=== PATIENT | female | born 1955 | race Caucasian/White ===

== ENCOUNTER → 2016-12-02 | Outpatient (CLI) | payer OTHER ==
[~2016-12-02] MED LIST: ACETAMINOPHEN325 M1 PO; ADVAIR HFA 115-12 GM INH; ADVAIR HFA115 MCG/21 INH; ALBUTEROL INH IH; AMITRIPTYLINE H50 M2 PO; AMITRIPTYLINE H50 M3 PO; ATIVAN1 MG PO; AZITHROMYCIN 2250 MG PO; B12 5,000 MCG1 EACH IM; B12INJ IM; B12INJ SC; BENADRYL25 MG PO; BOOST PO; BYSTOLIC2.5 MG PO; CEFDINIR300 MG PO; CEPACOL SORE T1 EAC7 PO; CIPROFLOXACIN500 M1 PO; CIPROFLOXACIN500 M3 GT; CITRUCEL CAPLET1 TA1 PO; CLARITIN10 MG PO; COLACE 100 MG100 MG PO; COLACE100 MG PO; COMBIVENT IH; COMBIVENT INH; COMBIVENT RESPIM4 GM IH; COMBIVENT RESPIM4 GM INH; COMPAZINE10 MG; COMPAZINE5 MG PO; CYANOCOBAL1000 MCG/1 IM; CYANOCOBALAM1000 MCG IM; CYMBALTA30 MG PO; DEMADEX20 MG PO; DEXAMETHASONE 22 M1 PO; DIAZEPAM 10 MG10 M2 PO; DILAUDID 2 MG TA2 MG; DILAUDID 2 MG TA2 MG PO; DILAUDID 4 MG TA4 M1 PO; DILAUDID PUMP; DILAUDID1 MG/1 ML IV; DILAUDID2 M1 PO; DILAUDID8 MG PO; DOCUSATE SODIU100 MG PO; DOLOPHINE HCL10 MG PO; DUONEB 2.5-0.5 M3 ML INH; DURAGESIC1 EAC1 TD; ENTOCORT EC 3 MG3 M1 PO; ERY-TAB250 MG PO; ERYTHROMYCIN250 MG; FENTANYL PA50 MCG/HR TD; FENTANYL PA50 MCG/HR TP; FLAGYL 250 MG250 MG; FLAGYL500 MG PO; FLEXERIL PO; FLONASE 0.05%50 MCG NASAL; FLORANEX PACKET1 GM PO; FLORANEX TABLE1 EAC1 PO; FLUCONAZOLE 10100 MG PO; HUMIRA40 MG/0.8 SUBQ; HYDROMORPH; HYDROMORPHONE HC8 MG PO; HYOSCYAMINE PO; HYOSCYAMINE0.375 M2 PO; IRON PO; IRON325 PO; K-DUR 20 MEQ T20 MEQ PO; KLOR-CON 1010 MEQ PO; LEVAQUIN 250 M250 MG; LORAZEPAM 0.50.5 MG PO; LORAZEPAM 1 MG T1 M1; LORAZEPAM 1 MG T1 M1 PO; LOZENGES; MAG DELAY64 MG PO; MAGNESIUM OXID400 MG PO; MAGNESIUM PO; MAGNESIUM250 M1 PO; MAGNESIUM400 MG PO; MECLIZINE 25 MG25 M1 PO; METHADONE HCL 110 M1 PO; METHADOSE10 M1 PO; METOCLOPRAMIDE 55 M1 PO; METOCLOPRAMIDE10 MG PO; MIRALAX17 GM PO; MOBIC7.5 MG PO; MUCINEX TA600 MG/TA2 PO; NASONEX17 GM NASAL; NEURONTIN 300300 M1 PO; NICOTINE PATCH1 EAC1 TD; NICOTINE TRANSD14 M1 TD; NICOTINE TRANSD21 M1; NICOTINE TRANSD21 M1 TRANSDERM; NORCO 5-325 TA1 EACH PO; ONDANSETRON HCL4 M2 IV; OPANA ER20 M1 PO; OXYCODONE HCL5 M1 PO; OXYCONTIN20 M1 PO; OXYIR5 MG PO; PANTOPRAZOLE SO40 M1 PO; PEPCID20 MG IV; PHENERGAN 25 MG25 M1 PO; PHENERGAN 25 MG25 MG PO; PHENERGAN IV; PHENERGAN-CODE120 ML PO; PHENERGAN25 M2 PO; PHENERGAN25 MG RE; PHENERGAN25 MG/1 M1 IV; POTASSIUM GLUCO99 M2 PO; POTASSIUM PO; POTASSIUM20; POTASSIUM20 PO; PREDNISONE 10 M10 MG; PREDNISONE 10 M10 MG PO; PREDNISONE 20 M20 MG PO; PREDNISONE 5 MG5 M1 PO; PREDNISONE 5 MG5 MG; PROTONIX40 M2 PO; REGLAN 10 MG TA10 MG PO; REMERON15 MG PO; SANCTURA20 MG PO; SODIUM CHLORID500 M1 IV; STOOL SOFTENER1 EAC2 PO; SYMBICORT160 MCG/4.; TESSALON PERLE100 MG PO; TRANSDERM-SCO1 PATC1 TD; TRAZODONE HCL50 MG PO; TUSSIN DM CLEA PO; VALACYCLOVIR1000 MG PO; VALIUM5 MG PO; VANCOMYCIN HCL 11 G2 IVPB; VANCOMYCIN HCL1 GM IVPB; VISTARIL 25 MG25 M1 PO; VITAMIN B-12 IM; VITAMIN B-12500 MCG PO; VITAMIN D1000 UNI1 PO; XANAX XR1 MG PO; ZOFRAN ODT4 MG PO; ZOFRAN2 MG/1 ML IV; ZOSYN 3.3753.375 GM IV
[2016-12-02 16:54] LABS: HEMATOCRIT 41.5 % (37.0-47.0); HEMOGLOBIN 13.7 gm/dL (12.0-15.0); MCH 29.4 pg (26.0-34.0); MCV 89.3 fL (80.0-100.0); RBC 4.65 mil/uL (4.20-5.00); RDW 20.9 % (10.5-14.5); WBC 10.2 thou/uL (4.0-11.0)
[2016-12-02 17:39] LABS: ALBUMIN 3.4 g/dL (3.4-5.0); ALKALINE PHOSPHATASE 147 U/L (46-116); ANION GAP 9 mmol/L (7-16); BUN 20 mg/dL (7-18); CALCIUM 9.2 mg/dL (8.5-10.1); CHLORIDE 100 mmol/L (98-107); CHOLESTEROL 269 mg/dL (<200); CO2 29 mmol/L (21-32); CREATININE 0.8 mg/dL (0.6-1.3); GLUCOSE 97 mg/dL (70-99); HDL CHOLESTEROL 108 mg/dL (>40); LDL CHOLESTEROL 129 mg/dL (<100); POTASSIUM 4.4 mmol/L (3.5-5.1); SGOT 15 U/L (15-37); SGPT 22 U/L (30-65); SODIUM 138 mmol/L (136-145); TC:HDL 2.5 Ratio (Not establshd); TOTAL BILIRUBIN 0.5 mg/dL (<0.1-1.0); TRIGLYCERIDE 164 mg/dL (<150); VLDL 33 mg/dL (<40)
[2016-12-03 04:15] LABS: FOLIC ACID 11.5 ng/mL (>3.0)
[2016-12-03 08:14] LABS: FREE T4 1.57 ng/dL (0.82-1.77); TSH 1.25 uIU/mL (0.450-4.500)
== END ==
LOC: OPONC 02:02
PROVIDERS: Internal Medicine
DX: K50.90 Crohn's disease, unspecified, without complications (principal); R60.9 Edema, unspecified; E46 Unspecified protein-calorie malnutrition

== ENCOUNTER → 2017-07-17 | Outpatient (CLI) | payer OTHER | LOC: OPONC 09:11 | DX: J01.90 Acute sinusitis, unspecified (principal); R50.9 Fever, unspecified; J44.9 Chronic obstructive pulmonary disease, unspecified; K50.90 Crohn's disease, unspecified, without complications; R35.0 Frequency of micturition ==

== ENCOUNTER 2017-08-20 09:42 | Inpatient (IN) | payer OTHER ==
[~2017-08-20] VITALS: Ht 157.5 cm; Wt 61.2 kg
--- NOTE | ~2017-08-20 | H ---
[facility] [place] [address] HISTORY AND PHYSICAL Name: HERMILO GEORGE Room #: 441-P ADM IN M.R.#: [id number] Admission: 08/20/17 Attend Phys: Rufus Faye MD Discharge: Date of : 55 Report #: [id number] THIS REPORT FOR: //name// CC: Deon Faye DATE OF SERVICE: 08/20/2017 CHIEF COMPLAINT: Abdominal pain. HISTORY OF PRESENT ILLNESS: This is one of many Donora admissions for this 62-year-old female with unbearable left lower quadrant abdominal pain that became worse 10 days ago. She has had intermittent cramping abdominal pain, nausea and some vomiting and some diarrhea. She has had constipation. She has had lightheadedness and rapid heartbeat. She has a long history of Crohn's disease with multiple surgeries. PAST MEDICAL HISTORY: Long history of Crohn's disease, also with a 6-8 year hiatus in the late part of 1589-7808 decade. She has had . She reported to the Emergency Room physician that she had had 5 intestinal resections, 2 surgeries for lysis of adhesions, and 3 fistulas. She takes Humira. She has had all of her teeth removed in order to safely allow her to take Humira. She is a smoker and has COPD. She has atherosclerotic vascular disease. She has elevated lipids. On 10/15/2016, she had a CT enterogram that again revealed a small bowel stricture with a new finding of proximal dilatation, suggesting more functional obstruction. She was given a course of corticosteroids with the hope it would enlarge and would reduce inflammation and enlarge the lumen and relieve the possible mild obstruction. She has a history of chronic B12 deficiency and difficulty in actually giving herself B12 injection on a monthly basis. More recently, she insisted that she was taking her B12 injections monthly with the B12 level returning low and methylmalonic acid level returning high. It was recommended that she give herself B12 injection every 2 weeks. She has had severe malnutrition and malabsorption. She has had episodes of difficulty with multifactorial edema. At the same time, she has been undergoing corticosteroid therapy, and at times higher doses of torsemide have been recommended for short periods of time. She has a short remnant of the colon left after several surgeries with a "kink" around the area of the anastomosis, which can catch stool and given her this sensation of being constipated. 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 This resolved over [facility] [address] [place] [address] HISTORY AND PHYSICAL Name: HERMILO GEORGE Room #: 441-P [facility] IN [facility]#: [id number] Admission: 08/20/17 Attend Phys: Rufus Faye MD Discharge: Date of : 55 Report #: [id number] several years, because of the vagueness of the symptoms, the diagnosis was delayed. She has had pancreatitis in the past. There is unclear history of meningitis from an infection of her intrathecal pain pump device. She has had chronic pain, chronic depression, kidney stones, and a cholecystectomy. She has COPD and she smokes. She has active atherosclerotic vascular disease in her mesenteric distribution. She has had back surgery for spinal stenosis with a titanium skyla placed at L4-L5. She has had postoperative infections in some of those areas along with an osteoporotic vertebral crack which was also repaired. She has a Port-A-Cath in place. She has had gastroparesis from her multiple medical problems as well as her high dose pain medications. She has osteoporosis and history of atrial fibrillation in the past. She has an intrathecal pain pump that is managed by Dr. Quigley at the [facility]. It has been infected and replaced at least one time. REVIEW OF SYSTEMS: In addition to the HPI, she recently had return of severe edema going from the tips of her toes to her upper thighs. Torsemide 20 mg 2 tablets once or twice daily have helped tremendously with removing a lot of her edema fluid. Recently in the office, she has had more problems with edema and has been taking the higher dose of the loop diuretic. SOCIAL HISTORY: She does not drink alcohol. She continues to smoke, although the number of cigarettes per day has dropped tremendously. CURRENT MEDICATIONS: List recorded in the electronic medical record: Torsemide 20 mg either one or two pills daily depending on how much edema she has. She is to take a potassium pill along with it. Vitamin B12 1000 mcg/mL, she is to take 1 every 2 weeks. Diazepam 10 mg twice day is a muscle relaxer. Hydromorphone 2 mg tablets for 8 mg 4 times a day as needed for pain. Potassium chloride 10 mEq with each of the torsemide 20 mg tablets once daily. Promethazine 25 mg every 6 hours as needed for nausea. Tizanidine 4 mg tablets one half to one tablet every 8 hours as needed for muscle relaxer. Torsemide 20 mg 1 tablet once daily is her current dose for leg swelling. ALLERGIES: Lactose intolerance, sulfonamide antibiotics, , mesalamine from Pentasa and zolpidem. ASSESSMENT: 1. Abdominal pain. 2. Ongoing ulcerative colitis. 3. Possible constipation. [facility] [address] [place] [address] HISTORY AND PHYSICAL Name: HERMILO GEORGE Room #: 441-P [facility]#: [id number] Admission: 08/20/17 Attend Phys: Rufus Faye MD Discharge: Date of : 55 Report #: [id number] 4. Chronic obstructive pulmonary disease. 5. Hypertension. PLAN: The patient is admitted and given intravenous fluids for her dehydration. She is also getting IV fluids for her volume depletion. She is to undergo a colonoscopy tomorrow to evaluate the current state of disease in her colon. She is to continue pain medications either orally or IV while in the hospital. She retains her intrathecal pain pump, which remains active and is giving her medication to control her pain. She requests a full code blue. By: 0012 0116 Rufus Faye MD /nt
--- NOTE | ~2017-08-20 | EKG ---
[place] [address] [facility] [address] ELECTROCARDIOGRAM REPORT Name: HERMILO GEORGE Room #: [facility]#: [id number] Admission: 08/20/17 Attend Phys: Discharge: Date of : 55 Report #: [id number] THIS REPORT FOR: //name// [facility] ED Test Date: 2017-08-20 Test Time: 10:06:57 Pat Name: HERMILO GEORGE Department: Room: Gender: F Senior Bi Developer: [id number] : 1955 Requested By: Hernan [place] Order Number: [id number] MD: Eduardo Eddy Measurements Intervals [place] Rate: 111 P: 67 MD: 175 QRS: 2 QRSD: 96 T: 25 QT: 332 QTc: 451 Interpretive Statements Sinus tachycardia Compared to ECG 07/09/2015 05:57:46 Sinus rhythm no longer present Electronically Signed On 08-20-2017 11:54:58 CDT by Eduardo Eddy [email or web address] <ELECTRONICALLY SIGNED> By: Eduardo Eddy MD 08/20/17 1154 1006 1006 MD IVONE Harris
--- NOTE | ~2017-08-20 | P ---
[facility] [place] [address] PROCEDURE REPORT Name: HERMILO GEORGE Room #: 441-P [facility]#: [id number] Admission: 08/20/17 Attend Phys: Rufus Faye MD Discharge: 08/24/17 Date of : 55 Report #: [id number] THIS REPORT FOR: //name// CC: Deon Faye BRIEF HISTORY: The patient is a 62-year-old woman with a history of Crohn disease and previous surgery for Crohn disease, on chronic maintenance therapy with Humira who has developed increasing diarrhea and pain consistent with her typical relapses in the past. PREOPERATIVE DIAGNOSIS: Crohn disease with previous surgery. POSTOPERATIVE DIAGNOSES: 1. Stenotic ileocolonic anastomosis with ulceration. 2. Mild erosive changes, proximal colon. 3. Surgical changes consistent with previous ileocolectomy. MEDICATIONS: Deep sedation with propofol per anesthesia. SPECIMEN: 1. Biopsies of stenotic anastomosis. 2. Biopsies of proximal colon. ESTIMATED BLOOD LOSS: 3 mL. PROCEDURE: Colonoscopy to ileocolonic anastomosis with biopsy. FINDINGS: Prior to propofol sedation, procedure of colonoscopy was reviewed with the patient as well as potential risks and its complications. She indicates she understands and desires to proceed. DESCRIPTION OF PROCEDURE: With the patient in left lateral decubitus position, digital examination was completed which revealed no abnormalities. Subsequently, the [employer] video colonoscope was introduced into the rectum and advanced under direct vision into the proximal colon. In the proximal colon, ileocolonic anastomosis was identified. It was noted to be erythematous and superficially eroded. It was noted to be markedly stenotic and the scope would not pass. Multiple biopsies were obtained. At that point, the scope was withdrawn and careful circumferential views were obtained. Unfortunately, the prep was limited with moderate amount of liquid stool around the colon. Much of the mucosa was able to be visualized, but some of this material was so thick, it would not aspirate through the scope. There were streaks of blood in the proximal colon on some mucusy material but was washed away. The underlying mucosa essentially looked normal. A couple of small erosions were seen. Multiple biopsies were obtained in the proximal colonic mucosa. As we withdrew the scope, again, the prep was limited but the mucosa was seen and appeared to [address] [address] PROCEDURE REPORT Name: HERMILO GEORGE Room #: 441-P [facility] IN [facility]#: [id number] Admission: 08/20/17 Attend Phys: Rufus Faye MD Discharge: 08/24/17 Date of : 55 Report #: [id number] be normal. I did not see pseudomembranes to suggest C. difficile colitis. Scope was withdrawn in the rectum. Upon retroflexion, no abnormalities were seen. Scope was withdrawn. The patient tolerated the procedure well. DISPOSITION: The patient with history of Crohn disease. She has a tightly stenotic ileocolonic anastomosis. The CT shows thickening of the ileum, which I presumed represents active inflammatory disease. I could not get the scope into the ileum to visualize the mucosa. Biopsies were obtained. She is currently on Humira and will continue at this point in time. She was also started on IV steroids, which may be beneficial at least in a short term. Also, I have discussed with regard to long-term plans in regards to Humira, antibody levels and CHOP levels some may be helpful before next injection. She is asking about use of other agents such as Stelara or Entyvio. We will follow up on biopsies and discuss further. <ELECTRONICALLY SIGNED> By: Larry Soria MD 08/27/17 1200 1327 0455 Larry Soria MD /nt
--- NOTE | ~2017-08-20 | S ---
[facility] [place] [address] SURGICAL PATH RPT PROCEDURE Name: ZANE GEORGENA Jesus Room #: 441-P DIS IN M.R.#: [id number] Admission: 08/20/17 Date of : 55 Discharge: 08/24/17 Report #: [id number] Path Case #: [id number] PATHOLOGY REPORT COLLECTION DATE: 08/21/2017 RECEIVED DATE: 08/21/2017 SUBMITTING PHYS: Dr. Larry Soria OTHER PHYS: SPECIMEN(S) RECEIVED: A.Biopsy of ileocolonic anastomosis B.Colon * * * * * * * * * * * * FINAL DIAGNOSIS: A. "Biopsy of ileocolonic anastomosis," biopsy: - Colonic mucosa with moderate to marked chronic active colitis, severe activity, with ulceration and granulation tissue; no dysplasia seen. (see comment) B. "Colon," biopsy: - Colonic mucosa with mild chronic active colitis, mild activity; no dysplasia seen. (see comment) COMMENT: Both specimens A and B are histologically compatible with chronic idiopathic inflammatory bowel disease. No dysplasia is seen. Clinical and endoscopic correlation is recommended. (CLW:; 08/24/2017) PATHOLOGIST: Bonny Jonas M.D. REPORT ELECTRONICALLY SIGNED BY: Bonny Jonas M.D. DATE/TIME: 08/24/2017 22:11 * * * * * * * * * * * * GROSS PATHOLOGY: A. Received in formalin labeled "Hermilo George BX of ileocolonic anastomosis," are 5 segments of miller soft tissue measuring 1.3 x 1.0 x 0.4 cm in aggregate dimensions and ranging from 0.3 to 0.4 cm in maximum dimension. The specimen is submitted entirely in cassette A1. B. Received in formalin labeled "Hermilo George, BX of colon," are 3 segments of miller soft tissue measuring 1.3 x 0.3 x 0.3 cm in aggregate dimensions and ranging from 0.3 to 0.4 cm in maximum dimension. The specimen is submitted entirely in cassette B1. (TSD; 08/21/2017) [facility] [address] [place] [address] SURGICAL PATH RPT PROCEDURE Name: HERMILO GEORGE Room #: 441-P [facility] IN M.R.#: [id number] Admission: 08/20/17 Date of : 55 Discharge: 08/24/17 Report #: [id number] Path Case #: [id number] CLINICAL HISTORY: Hx Crohn's INITIAL CPT CODE(S): A; 30334 B; 95576 Professional services performed by [facility] at [facility] [address] [place] [address] Technical services performed by [facility] at [address] [place] [address], [facility] [address] [address]. [facility] [address] [address] PHONE: [phone] DIRECTOR: Guillermo Cortes M.D. * * * END OF REPORT * * *
[2017-08-20 09:52] VITALS: BP 139/94
[2017-08-20 10:10] LABS: URINE BLOOD NEGATIVE (Negative); URINE COLOR YELLOW; URINE GLUCOSE-RANDOM* NEGATIVE (Negative); URINE KETONES TRACE (Negative); URINE LEUKOCYTES-REFLEX NEGATIVE (Negative); URINE PROTEIN (DIPSTICK) 1+ (Negative); URINE SPECIFIC GRAVITY >= 1.030 (1.003-1.035)
[2017-08-20 10:13] LABS: ICTOTEST (BILI CONFIRMATORY) Negative (Negative); URINE BILIRUBIN NEGATIVE (Negative)
[2017-08-20 10:21] LABS: HYALINE CASTS 0-3 Few /LPF (None Seen); SQUAMOUS >10 Many /LPF (0-3)
[2017-08-20 10:22] LABS: URINE RBC 0-2 Rare /HPF (0-2); URINE WBC-REFLEX 0-5 Rare /HPF (0-5)
[2017-08-20] MEDS ORDERED: TIZANIDINE HCL4 MG PO (10:26)
[2017-08-20 10:27] LABS: CRYSTALS None Seen /LPF (None Seen)
[2017-08-20] MEDS ORDERED: PHENERGAN 25 MG25 M1 PO (10:27)
[2017-08-20] MEDS ORDERED: KLOR-CON 1010 MEQ PO (10:29)
[2017-08-20 10:30] LABS: ABSOLUTE NEUTROPHILS 6.7 thou/uL (1.4-8.2); BASOPHILS 1.3 % (0.0-2.0); EOSINOPHILS 0.6 % (0.0-3.0); HEMATOCRIT 39.5 % (37.0-47.0); HEMOGLOBIN 13.4 gm/dL (12.0-15.0); MCH 32.4 pg (26.0-34.0); MCV 95.3 fL (80.0-100.0); MONOCYTES 8.3 % (1.0-8.0); PLATELET COUNT 222 thou/uL (150-400); POLYS 65.8 % (36.0-66.0); RBC 4.14 mil/uL (4.20-5.00); RDW 14.8 % (10.5-14.5); WBC 10.3 thou/uL (4.0-11.0)
[2017-08-20] MEDS ORDERED: B-12 COMPL1000 MCG/1 IM (10:33)
[2017-08-20 10:37] LABS: MANUAL DIFF NO
[2017-08-20 10:38] LABS: ANION GAP 7 mmol/L (7-16); BUN 14 mg/dL (7-18); CALCIUM 8.7 mg/dL (8.5-10.1); CHLORIDE 104 mmol/L (98-107); CO2 28 mmol/L (21-32); GLUCOSE 156 mg/dL (74-106); SODIUM 139 mmol/L (136-145)
[2017-08-20 10:39] LABS: POTASSIUM 2.6 mmol/L (3.5-5.1)
[2017-08-20 10:47] LABS: ALBUMIN 3.1 g/dL (3.4-5.0); ALKALINE PHOSPHATASE 178 U/L (46-116); SGOT 31 U/L (15-37); SGPT 29 U/L (30-65); TOTAL BILIRUBIN 0.3 mg/dL (<0.1-1.0); TOTAL PROTEIN 6.9 g/dL (6.4-8.2); TROPONIN-I < 0.04 ng/mL (<0.04-0.07)
[2017-08-20 12:13] VITALS: BP 102/55
[2017-08-20 12:26] VITALS: BP 102/55
[2017-08-20 13:38] VITALS: BP 124/64
[2017-08-20 16:20] VITALS: BP 107/58
[2017-08-20 18:18] LABS: CALCIUM 8.8 mg/dL (8.5-10.1); CREATININE 0.8 mg/dL (0.6-1.0)
[2017-08-20 18:19] LABS: POTASSIUM 4.4 mmol/L (3.5-5.1)
[2017-08-20 19:19] VITALS: BP 104/52
[2017-08-21 04:11] VITALS: BP 121/51
[2017-08-21 05:11] LABS: ALBUMIN 2.6 g/dL (3.4-5.0); CREATININE 0.7 mg/dL (0.6-1.0); MAGNESIUM 2.2 mg/dL (1.8-2.4); POTASSIUM 4.6 mmol/L (3.5-5.1); TOTAL BILIRUBIN 0.3 mg/dL (<0.1-1.0); TOTAL PROTEIN 6.7 g/dL (6.4-8.2)
[2017-08-21 07:18] VITALS: BP 114/61
[2017-08-21 16:33] VITALS: BP 104/47
[2017-08-21 20:09] VITALS: BP 98/50
[2017-08-22 05:05] VITALS: BP 128/64
[2017-08-22 05:45] LABS: CALCIUM 8.8 mg/dL (8.5-10.1); POTASSIUM 5.3 mmol/L (3.5-5.1)
[2017-08-22 08:42] VITALS: BP 129/70
[2017-08-22 15:33] VITALS: BP 141/69
[2017-08-22 19:48] VITALS: BP 131/62
[2017-08-23 03:45] VITALS: BP 123/65
[2017-08-23 05:53] LABS: HEMATOCRIT 34.4 % (37.0-47.0); MCH 31.5 pg (26.0-34.0); MCHC 32.4 g/dL (28.0-37.0); MCV 97.2 fL (80.0-100.0); RBC 3.54 mil/uL (4.20-5.00); RDW 14.8 % (10.5-14.5); WBC 11.4 thou/uL (4.0-11.0)
[2017-08-23 06:01] LABS: HEMOGLOBIN 11.2 gm/dL (12.0-15.0)
[2017-08-23 06:02] LABS: CALCIUM 8.9 mg/dL (8.5-10.1); CREATININE 0.8 mg/dL (0.6-1.0); MAGNESIUM 1.9 mg/dL (1.8-2.4); POTASSIUM 4.4 mmol/L (3.5-5.1)
[2017-08-23 07:10] VITALS: BP 136/60
[2017-08-23 15:54] VITALS: BP 144/64
[2017-08-23 20:00] VITALS: BP 139/59
[2017-08-24 04:45] VITALS: BP 144/65
[2017-08-24 07:54] VITALS: BP 144/63
[2017-08-24 11:14] VITALS: BP 144/63
[2017-08-24] MEDS ORDERED: LORAZEPAM 0.50.5 MG PO (13:06)
[2017-08-24] MEDS ORDERED: PREDNISONE 10 M10 MG PO (13:06)
== END 2017-08-24 14:35 | disposition home health service (06) | DRG 385 ==
LOC: ER 09:42 → EROBS 12:02 → 4S 12:02 → ENTRNSPT 08-24 14:24 → EDTRNSPTSTS 08-24 14:32 → 4S 08-24 14:35
PROVIDERS: Internal Medicine; Physician Assistant
PROC: 0DBE8ZX Excision of Large Intestine, Via Natural or Artificial Opening Endoscopic, Diagnostic (ICD-10-PCS; principal; 2017-08-21)
PROC: 0DBB8ZX Excision of Ileum, Via Natural or Artificial Opening Endoscopic, Diagnostic (ICD-10-PCS; principal; 2017-08-21)
DX: K50.90 Crohn's disease, unspecified, without complications (principal); E43 Unspecified severe protein-calorie malnutrition; E87.6 Hypokalemia; E86.0 Dehydration; G89.29 Other chronic pain; F32.9 Major depressive disorder, single episode, unspecified; M81.0 Age-related osteoporosis without current pathological fracture; I48.91 Unspecified atrial fibrillation; N20.0 Calculus of kidney; F17.210 Nicotine dependence, cigarettes, uncomplicated; J44.9 Chronic obstructive pulmonary disease, unspecified; I10 Essential (primary) hypertension; E86.1 Hypovolemia; E83.42 Hypomagnesemia; Z90.710 Acquired absence of both cervix and uterus; Z90.49 Acquired absence of other specified parts of digestive tract; Z88.8 Allergy status to other drugs, medicaments and biological substances; Z88.2 Allergy status to sulfonamides; Z87.01 Personal history of pneumonia (recurrent)
CPT/HCPCS: 10100; 62110; 62900; 70005

== ENCOUNTER → 2017-09-08 | Outpatient (CLI) | payer OTHER ==
[~2017-09-08] MED LIST changes: +B-12 COMPL1000 MCG/1 IM; +TIZANIDINE HCL4 MG PO
[2017-09-08 12:30] VITALS: BP 126/73
== END ==
LOC: OPONC 06:25
DX: K50.90 Crohn's disease, unspecified, without complications (principal)

== ENCOUNTER → 2017-09-16 | Outpatient (CLI) | payer OTHER ==
[2017-09-16 11:57] LABS: HEMATOCRIT 40.6 % (37.0-47.0); HEMOGLOBIN 13.5 gm/dL (12.0-15.0); MCHC 33.1 g/dL (28.0-37.0); MCV 93.6 fL (80.0-100.0); RBC 4.34 mil/uL (4.20-5.00); RDW 14.7 % (10.5-14.5); WBC 16.7 thou/uL (4.0-11.0)
[2017-09-16 14:44] LABS: CALCIUM 9.6 mg/dL (8.5-10.1); CREATININE 1.2 mg/dL (0.6-1.0); POTASSIUM 4.5 mmol/L (3.5-5.1)
== END ==
LOC: OPONC 11:04
PROVIDERS: Specialist
DX: K50.90 Crohn's disease, unspecified, without complications (principal)

== ENCOUNTER → 2017-12-14 | Outpatient (CLI) | payer OTHER ==
[~2017-12-14] MED LIST changes: +ATIVAN0.5 MG PO; +DEPO MEDRO IM; +DILAUDID PUMP IV; +ENTOCORT EC3 MG PO; +INFLECTRA100 MG IV; +LEVAQUIN 500 M500 M2 PO; +LYRICA 75 MG CA75 MG PO; +MAGOX 400400 MG PO; +PREDNISONE 20 M20 M1 PO; +[UNRECOGNIZED DRUG - OTHER]
== END ==
LOC: OPONC 03:04
DX: K50.90 Crohn's disease, unspecified, without complications (principal)

== ENCOUNTER 2018-01-04 13:21 | Inpatient (IN) | payer OTHER ==
[~2018-01-04] VITALS: Ht 154.9 cm; Wt 64.8 kg
--- NOTE | ~2018-01-04 | D ---
[facility] [place] [address] DISCHARGE SUMMARY Name: HERMILO GEORGE Room #: 354-P [facility] IN ..#: [id number] Admission: 01/04/18 Attend Phys: Rufus Faye MD Discharge: 01/06/18 Date of : 55 Report #: [id number] THIS REPORT FOR: //name// CC: Deon Faye DATE OF SERVICE: 01/06/2018 SUMMARY OF HISTORY AND PHYSICAL: The patient had her usual 3 days of increased abdominal pain associated with nausea, vomiting and diarrhea, heralding a flare of her Crohn's. With these findings, she presented to the Emergency Room and was found to be severely dehydrated with electrolyte abnormalities and unable to keep hydrated orally. She required intravenous fluids and electrolyte replacement. She also had pancolitis on CT scan of the abdomen and required hospitalization for evaluation and treatment by her Gastroenterology team. SUMMARY OF HOSPITAL COURSE: She was seen by Dr. Osei and his staff. They recommended that she start on prednisone 20 mg a day. She did feel some better. At the end of her hospital stay, Dr. Osei felt, by telephone call to me, that he would contact the patient and have her started on 60 mg of prednisone a day with a tapering schedule as an outpatient. The patient also had arrangements made for her to get her second IV infusion of generic Remicade, as she is in the middle of a switch from Humira back to Remicade, since Humira proved to be ineffective. She improved with IV fluid replacement and promethazine for nausea. Her electrolytes were replaced. Her pain was controlled with intravenous hydromorphone for breakthrough pain. She developed hives several hours prior to presenting to the Emergency Room. The hives responded to intravenous and oral Benadryl. She had itching in her arms, her left arm actually having only remnant of a hive by the time I examined her. An eosinophil count was normal at 100 and the source of the hives was not identified since her outpatient and inpatient medications were seen that she had been on for a long time. She had received one dose of IV generic Remicade, but it was 2 weeks before of the hives appeared. LABORATORY DATA: Sodium was 139, potassium 3.4 on admission. Creatinine was stable at 0.9. At discharge, her potassium had risen to 4.1. Her sodium was mildly high at 147, reflection of infusion of normal saline. Her lipase was low at 60. Her magnesium was low at 1.7 and normal at 2.3 at discharge. Her SGPT was low at 18. Her albumin was 3.3 on admission, but with rehydration, dropped to 2.6, qualifying for severe malnutrition. Lactic acid was 1.2. Her hemoglobin was 14.4 on admission and after rehydration, it dropped to 11.7, [address] [address] DISCHARGE SUMMARY Name: HERMILO GEORGE Room #: 354-P [facility] IN ..#: [id number] Admission: 01/04/18 Attend Phys: Rufus Faye MD Discharge: 01/06/18 Date of : 55 Report #: [id number] reflecting an anemia of chronic disease. Total eosinophil count was within normal range at 100. With a history of B12 deficiency, B12, folate and methylmalonic acid levels were ordered. Inadvertently, every 2-week injection of B12 was given the night before the blood draw, which resulted in a greater than 6000 vitamin B12 result. Folate was normal at 35.8. C. diff toxin on her stool was negative. Methylmalonic acid level is pending at discharge. Urinalysis shows specific gravity greater than 1.030, ketones were present, but it was otherwise negative. Nasal aspiration for influenza A and B was negative. Two blood cultures were negative. CT scan of the chest was negative. Cardiomegaly was unchanged. No CHF or acute pulmonary process was identified. Her right Port-A-Cath remained in place. The film was compared to 10/10/2016. CT scan of the abdomen and pelvis was most remarkable for there being no suggestion of a mechanical intestinal obstruction. Pancolitis was present with an avid mucosal enhancement and mild circumferential mural thickening. No obvious pericolonic inflammation was seen. The right anterior abdominal wall subcutaneous implanted pump device was seen. Mild lower lobe scarring was seen. The kidneys were normal and symmetrical. The gallbladder and pelvic organs had been removed. Diffuse hepatic steatosis was present in the liver. A small right Bochdalek hernia was present and only contained fat. DISCHARGE DIAGNOSES: 1. Flare of known Crohn's disease with pancolonic inflammation seen on CT scan, reflecting the ineffectiveness of Humira and urgency to attempt to switch to generic Remicade to see if it might be more effective. 2. Severe dehydration and electrolyte abnormalities. 3. Anemia of chronic disease. 4. Severe malnutrition with an albumin of 2.6 after rehydration. 5. Hepatic steatosis. 6. Chronic obstructive pulmonary disease. 7. B12 deficiency with methylmalonic acid still pending, but clearly and with markedly elevated B12 levels being reflective of drying at peak level immediately after administration. 8. A small Bochdalek right hernia is present in the lower chest. 9. Persistence of a long stenotic segment at the distal small bowel where it is [address] [place] [address] DISCHARGE SUMMARY Name: HERMILO GEORGE Room #: 354-P [facility] IN ..#: [id number] Admission: 01/04/18 Attend Phys: Rufus Faey MD Discharge: 01/06/18 Date of : 55 Report #: [id number] anastomosed to the remaining transverse colon. 10. Implanted pain pump in the right anterior abdominal wall. 11. Chronic pain syndrome. 12. Anxiety due to her now long-term difficulty controlling her Crohn's flares. 13. The patient developed idiopathic hives 1-2 hours before coming to the Emergency Room. They responded to IV Benadryl and to the prednisone ordered for her pancolitis, etiology is not known. 14. Mild cushingoid facies on exam with (at the current) very little edema in the legs, having responded to torsemide and potassium over the summer and fall months. 15. Itching and rash due to Nicotine Patch - she determined after discharged. PLAN: The patient is discharged. She is to return tomorrow morning for her second generic Remicade infusion. Dr. Osei's office will contact her tomorrow to instruct her on her prednisone taper - to begin tomorrow with 60 mg and then follow with taper schedule. She brought with her an appointment card for Dr. Giles for at 08:00 in the morning. She was in the hospital at that time and unable to keep that appointment. Her pain pump would not alarm for another week to 10 days, so she would receive adequate pain medication in that fashion. She would be short of her hydromorphone pills, so therefore, I wrote a prescription for the same that she is taking as written by Dr. Giles - hydromorphone 4 mg tablets 1-2 tablets every 6 hours p.r.n. breakthrough pain. This supplies 56 tablets for a 7-day supply. There are no refills. In addition, a copy of the prescription and the discharge and history and physical records reflecting missing her usual appointment and the need for the extra prescription as well as a copy of the appointment card she brought to the hospital where all faxed to Dr. Giles's office earlier in the day today. She is to come see me and bring all her medications in my office next week. She is to stay in close contact with Dr. Osei's office regarding followup. She is to present to the outpatient infusion center tomorrow morning to receive her second infusion of generic IV Remicade. <ELECTRONICALLY SIGNED> By: Rufus Faye MD 02/08/18 2030 0048 9 Rufus Faye MD /nt
--- NOTE | ~2018-01-04 | H ---
[place] [address] HISTORY AND PHYSICAL Name: HERMILO GEORGE Room #: 354-P [facility] IN ..#: [id number] Admission: 01/04/18 Attend Phys: Rufus Faye MD Discharge: 01/06/18 Date of : 55 Report #: [id number] THIS REPORT FOR: //name// CC: Deon Faye DATE OF SERVICE: 01/05/2018 CHIEF COMPLAINT: "Same ole, same ole (nausea, vomiting, diarrhea for 3 days heralding a Crohn'S flare); only this time, it hurts worse." HISTORY OF PRESENT ILLNESS: The patient presented to the Emergency Room with the same history as many previous presentations for a flare in her Crohn disease over the last several years. She experienced nausea, vomiting and diarrhea with an increase in diffuse abdominal pain for about 3 days prior to coming to the hospital. On clinical examination, she was dehydrated. Her laboratory values reflected dehydration, and a CT scan of the abdomen and pelvis showed pancolitis changes. She required admission for intravenous fluid and intravenous electrolyte replacement, and specialty consultation with her nurse infection control's team, headed by Dr. Deon Osei. She has a longstanding history of Crohn disease that has been resistant to various medications over the last several years. She has been taking Entocort about 6.5 mg a day (specially compounded for her), but has found Humira injections to not be effective. In the past, she had some difficulties with Remicade infusions, but she is unclear exactly what those were or if they were connected with other features of her medical condition at that time. Therefore, she is currently being switched to a trial of Remicade again, under the generic name of Inflectra. She had her first infusion 2 weeks ago, and is due for her next infusion on 01/05/2018. She has a long scarred stricture in the distal small bowel where it is anastomosed to the remaining of her left colon. On her last colonoscopy, this area was seen to have a markedly stenotic and erythematous and superficially eroded anastomosis from the ileum to the proximal colon. The rest of the colon appeared normal. Biopsy of the anastamosis showed moderate to marked chronic active colitis with severe activity with ulceration and granulation tissue and no dysplasia. Random biopsies of the normal appearing colon mucosa showed mild chronic active colitis without dysplasia. Both were felt to be compatible with chronic idiopathic inflammatory bowel disease. She also has had peripheral vascular disease with mesenteric artery stent, and often she tolerates moderately severe intravascular volume depletion with electrolyte abnormalities exceptionally well. Her tongue is always coated and dry. 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 Because of infected teeth, she had all of her teeth removed prior to starting Humira therapy for her Crohn's in the last 2 years. She has had C. diff, VRE, and gastroparesis in part from her pain medications. She has had multiple abdominal surgeries related to her Crohn's, hysterectomy, and a Port-A-Cath placement. She had an intrathecal pain pump placed that became infected requiring removal. A year later, a new pain pump had been inserted and now functions well, delivering significant amounts of pain relief given its intrathecal location. She has had a partial colon resection and other surgical procedures related to her Crohn disease. She has COPD. She stills smokes cigarettes and vapes. SOCIAL HISTORY: She smokes, she does drink, but very little alcohol. She is single. She lives by herself. CURRENT MEDICATIONS: Budesonide (Entocort EC) approximately 2 capsules of 3.25 mg each, both taken at the same time in the morning (this is compounded for her at a local pharmacy). Vitamin B12 at 1000 mcg/mL, she is supposed to take IM every 2 weeks. Hydromorphone 4 mg tablets, she takes 1 or 2 tablets 4 times a day as needed for pain breakthrough from her pain pump -- prescribed by Dr. Giles. Lorazepam 0.5 mg tablets 1 or 2 tablets up to 3 times a day as needed for anxiety brought on by corticosteroid medication for her Crohn disease. Magnesium oxide 400 mg once daily, torsemide 20 mg 1 or 2 tablets a day on an as needed basis for leg swelling; she takes a corresponding number of potassium chloride, Klor-Con tablets 10 mEq at the same time. Promethazine 25 mg every 4 hours as needed for nausea, prescribed by Dr. Osei and she has found this much superior to Zofran. Tizanidine 4 mg tablets, she takes 1/2 to 1 tablet every 8 hours as needed for a muscle relaxer and this is also prescribed by Dr. Giles. Her Dilaudid pain pump rate is 6.04 mg for 24 hours. She takes MiraLax as needed as a "true medical cure" for the few times she has constipation, as usually stools are loose. She uses a Ventolin inhaler (michelle carrier and dark blue colored medication canister) as needed for shortness of breath, but that has not been needed for a long time. Her Infusaport is irrigated whenever she has is at the [facility] and has her pain pump refilled. ALLERGIES: SHE HAS LACTOSE INTOLERANCE AND IS ALLERGIC TO MILK PRODUCTS. SHE IS ALLERGIC TO SULFONAMIDE ANTIBIOTICS. SHE IS ALLERGIC TO GREEN PATTERSON PEPPERS, MESALAMINE (FROM PENTASA), AND ZOLPIDEM CAUSES AMNESIA. [address] [place] [address] HISTORY AND PHYSICAL Name: HERMILO GEORGE Room #: 354-P [facility]#: [id number] Admission: 01/04/18 Attend Phys: Rufus Faye MD Discharge: 01/06/18 Date of : 55 Report #: [id number] REVIEW OF SYSTEMS: She began to feel widespread itching before she arrived at the Emergency Room Department, and saw the remnants of several small hives on her forearm. This happened before arriving at the hospital, so she can be sure that none of the hospital products or services caused the hives or subsequent itching. Since then, she reports that skin of her entire body itches, but is most noticeable in the upper extremities around the elbow to the hands. PHYSICAL EXAMINATION: GENERAL: Shows a 62-year-old chronically ill female, in moderate distress. HEENT: The oropharynx and tongue are remarkably dry and parched. The rest of the HEENT exam is grossly normal except for moderate durán facies. LUNGS: Clear. CARDIOVASCULAR: The heart tones are normal. ABDOMEN: Mildly distended, more so in the lower portion over the pelvis where an inflamed, slightly enlarged colon is easily palpated and is also exquisitely tender to the touch. SKIN: The skin in general is dry. There is a remnant of a hive present on the left arm marked by ink with mild redness around both of the elbows and forearms where she has been scratching. There is also itchiness she from the dry skin. EXTREMITIES: There is no clubbing, cyanosis or edema in the lower extremities at this time. LABORATORY DATA: CT scan of the abdomen and pelvis shows a small right Bochdalek hernia. Minimal bibasilar lung scarring is present. Heart size is normal. Diffuse hepatic steatosis is present and a small stable cyst is present. The gallbladder has been removed. The kidneys are normal in size and are symmetric with grossly symmetric perfusion. There are no stones present in the ureters. There changes of pancolitis. ASSESSMENT: 1. Progressive Crohn disease that has escaped medical control, now in the second week of an attempted shift over to another biologic. 2. Acute flare of Crohn disease. 3. Chronic abdominal pain. 4. Gross dehydration. 5. Hypokalemia 3.4, hypomagnesemia 1.7. 6. Chronic obstructive pulmonary disease. 7. Severe malnutrition with albumin of 2.6 after rehydration. 8. Other medical problems as mentioned in the body of the report above. PLAN: The patient requires full inpatient admission to address pain, inability to orally stay hydrated, correct the low potassium and magnesium, and see her nurse infection control for updated treatment plan. [address] [address] HISTORY AND PHYSICAL Name: HERMILO GEORGE Room #: 354-P [facility] IN M.R.#: [id number] Admission: 01/04/18 Attend Phys: Rufus Faye MD Discharge: 01/06/18 Date of : 55 Report #: [id number] [facility] has started her on prednisone 20 mg 2 tablets daily. She is due an Inflectra/Remicade infusion tomorrow. She also has an appointment card for an appointment with her pain doctor on Thursday, the at 8:00 in the morning. She is not going to be able to make this appointment. Therefore, a prescription for her hydromorphone 4 mg tablets taking 1 or 2 tablets up to every 6 hours as needed for breakthrough pain will be prescribed for her for a total of #56 tablets for a 7-day supply since she will be unable to get her prescription rewritten. Her pain pump has at least another week to 10 days' worth of medication in it before it alarms, she reported, so she anticipates being easily to get an appointment after she leaves the hospital to have her pain pump refilled and at that time, Dr. Giles can resume prescribing her pain medication. He will be sent copy of the prescription and a copy of the circumstances surrounding it, so she does not violate her contract with his practice for controlled pain medication. <ELECTRONICALLY SIGNED> By: Rufus Faye MD 02/08/18 2034 [id number] Rufus Faye MD /fina
[~2018-01-04 13:21] MED LIST changes: -ATIVAN0.5 MG PO; -DEPO MEDRO IM; -INFLECTRA100 MG IV; -LEVAQUIN 500 M500 M2 PO; -LYRICA 75 MG CA75 MG PO; -PREDNISONE 20 M20 M1 PO; -[UNRECOGNIZED DRUG - OTHER]
[2018-01-04 13:22] VITALS: BP 138/91
[2018-01-04 13:38] LABS: URINE BLOOD NEGATIVE (Negative); URINE CLARITY CLEAR; URINE COLOR YELLOW; URINE GLUCOSE-RANDOM* NEGATIVE (Negative); URINE KETONES TRACE (Negative); URINE LEUKOCYTES NEGATIVE (Negative); URINE NITRITE NEGATIVE (Negative); URINE PROTEIN (DIPSTICK) NEGATIVE (Negative); URINE SPECIFIC GRAVITY >= 1.030 (1.005-1.035); URINE UROBILINOGEN 0.2 E.U./dl (0.2-1.0)
[2018-01-04 13:41] LABS: URINE BILIRUBIN NEGATIVE (Negative)
[2018-01-04 14:00] LABS: ABSOLUTE NEUTROPHILS 6.4 thou/uL (1.4-8.2); BASOPHILS 1.1 % (0.0-2.0); EOSINOPHILS 0.3 % (0.0-3.0); HEMATOCRIT 43.9 % (37.0-47.0); HEMOGLOBIN 14.4 gm/dL (12.0-15.0); LYMPHOCYTES 19.1 % (24.0-44.0); MCH 30.9 pg (26.0-34.0); MCHC 32.8 g/dL (28.0-37.0); MCV 94.2 fL (80.0-100.0); MONOCYTES 7.3 % (1.0-8.0); PLATELET COUNT 236 thou/uL (150-400); POLYS 72.2 % (36.0-66.0); RBC 4.66 mil/uL (4.20-5.00); RDW 15.4 % (10.5-14.5); WBC 8.8 thou/uL (4.0-11.0)
[2018-01-04 14:10] LABS: CALCIUM 9.4 mg/dL (8.5-10.1); CREATININE 0.9 mg/dL (0.6-1.0); POTASSIUM 3.4 mmol/L (3.5-5.1)
[2018-01-04 14:17] LABS: ALBUMIN 3.3 g/dL (3.4-5.0); TOTAL BILIRUBIN 0.3 mg/dL (<0.1-1.0); TOTAL PROTEIN 7.5 g/dL (6.4-8.2)
[2018-01-04 17:07] VITALS: BP 109/49
[2018-01-04 17:53] VITALS: BP 121/62
[2018-01-04 19:25] VITALS: BP 133/78
[2018-01-04 20:30] VITALS: BP 107/56
[2018-01-05 00:45] VITALS: BP 112/48
[2018-01-05 04:15] VITALS: BP 117/52
[2018-01-05 06:53] LABS: ALBUMIN 2.6 g/dL (3.4-5.0); CALCIUM 8.1 mg/dL (8.5-10.1); CREATININE 0.9 mg/dL (0.6-1.0); MAGNESIUM 1.7 mg/dL (1.8-2.4); POTASSIUM 4.1 mmol/L (3.5-5.1); TOTAL BILIRUBIN 0.2 mg/dL (<0.1-1.0); TOTAL PROTEIN 6.1 g/dL (6.4-8.2)
[2018-01-05 08:40] LABS: FOLIC ACID 35.8 ng/mL (8.6-58.9)
[2018-01-05 09:03] VITALS: BP 117/49
[2018-01-05 11:45] VITALS: BP 100/49
[2018-01-05 16:00] VITALS: BP 115/64
[2018-01-05 20:25] VITALS: BP 101/51
[2018-01-06 04:40] VITALS: BP 127/63
[2018-01-06 06:35] LABS: ABSOLUTE NEUTROPHILS 5.1 thou/uL (1.4-8.2); BASOPHILS 0.8 % (0.0-2.0); EOSINOPHILS 0.9 % (0.0-3.0); HEMATOCRIT 36.2 % (37.0-47.0); LYMPHOCYTES 32.9 % (24.0-44.0); MCH 31.2 pg (26.0-34.0); MCHC 32.3 g/dL (28.0-37.0); MCV 96.6 fL (80.0-100.0); MONOCYTES 9.5 % (1.0-8.0); POLYS 55.9 % (36.0-66.0); RBC 3.75 mil/uL (4.20-5.00); RDW 15.9 % (10.5-14.5); WBC 9.1 thou/uL (4.0-11.0)
[2018-01-06 06:36] LABS: HEMOGLOBIN 11.7 gm/dL (12.0-15.0)
[2018-01-06 06:41] LABS: CALCIUM 8.3 mg/dL (8.5-10.1); CREATININE 0.9 mg/dL (0.6-1.0); MAGNESIUM 2.3 mg/dL (1.8-2.4); POTASSIUM 4.1 mmol/L (3.5-5.1)
[2018-01-06 07:11] VITALS: BP 113/57
[2018-01-06 08:02] LABS: ANISOCYTOSIS 1+; PLATELET COUNT 196 thou/uL (150-400)
[2018-01-06] MEDS ORDERED: PREDNISONE 20 M20 MG PO (13:33)
[2018-01-06 14:09] VITALS: BP 113/57
[2018-01-07] MEDS ORDERED: PREDNISONE 10 M10 MG PO (14:40)
[2018-01-07] MEDS ORDERED: INFLECTRA100 MG IV (14:42)
[2018-02-03] MEDS ORDERED: LEVAQUIN 500 M500 M2 PO (18:48)
== END 2018-01-06 14:49 | disposition home or self-care (01) | DRG 385 ==
LOC: ER 13:21 → EROBS 15:18 → 3W 15:18
PROVIDERS: Internal Medicine; Physician Assistant
DX: K50.90 Crohn's disease, unspecified, without complications (principal); E43 Unspecified severe protein-calorie malnutrition; J44.0 Chronic obstructive pulmonary disease with (acute) lower respiratory infection; F41.9 Anxiety disorder, unspecified; E87.6 Hypokalemia; E83.42 Hypomagnesemia; L29.9 Pruritus, unspecified; L50.9 Urticaria, unspecified; F17.210 Nicotine dependence, cigarettes, uncomplicated; E86.0 Dehydration; D63.8 Anemia in other chronic diseases classified elsewhere; K76.0 Fatty (change of) liver, not elsewhere classified; E53.8 Deficiency of other specified B group vitamins; G89.4 Chronic pain syndrome; J20.8 Acute bronchitis due to other specified organisms; Z68.27 Body mass index [BMI] 27.0-27.9, adult; Z88.2 Allergy status to sulfonamides; Z88.8 Allergy status to other drugs, medicaments and biological substances; Z91.018 Allergy to other foods; Z90.49 Acquired absence of other specified parts of digestive tract
CPT/HCPCS: 10879

== ENCOUNTER → 2018-02-03 | Outpatient (CLI) | payer OTHER ==
[~2018-02-03] MED LIST changes: +ATIVAN0.5 MG PO; +DEPO MEDRO IM; +INFLECTRA100 MG IV; +LEVAQUIN 500 M500 M2 PO; +LYRICA 75 MG CA75 MG PO; +PREDNISONE 20 M20 M1 PO; +[UNRECOGNIZED DRUG - OTHER]
[2018-02-03 09:45] VITALS: BP 114/58
[2018-02-03 12:03] LABS: ABSOLUTE NEUTROPHILS 7.5 thou/uL (1.4-8.2); BASOPHILS 0.5 % (0.0-2.0); EOSINOPHILS 0.7 % (0.0-3.0); HEMATOCRIT 37.1 % (37.0-47.0); HEMOGLOBIN 12.2 gm/dL (12.0-15.0); MCH 30.2 pg (26.0-34.0); MCHC 32.8 g/dL (28.0-37.0); MCV 91.9 fL (80.0-100.0); MONOCYTES 8.3 % (1.0-8.0); PLATELET COUNT 195 thou/uL (150-400); POLYS 78.5 % (36.0-66.0); RBC 4.04 mil/uL (4.20-5.00); RDW 15.3 % (10.5-14.5); WBC 9.5 thou/uL (4.0-11.0)
[2018-02-03 12:17] LABS: ALBUMIN 2.8 g/dL (3.4-5.0); CALCIUM 8.9 mg/dL (8.5-10.1); CREATININE 1.3 mg/dL (0.6-1.0); MAGNESIUM 2.2 mg/dL (1.8-2.4); POTASSIUM 3.2 mmol/L (3.5-5.1); TOTAL BILIRUBIN 0.3 mg/dL (<0.1-1.0); TOTAL PROTEIN 6.7 g/dL (6.4-8.2)
[2018-02-03 12:57] LABS: ANISOCYTOSIS 1+; POLYCHROMASIA OCCASIONAL
== END ==
LOC: OPONC 02-02 00:30
PROVIDERS: Internal Medicine
DX: K50.018 Crohn's disease of small intestine with other complication (principal); M06.9 Rheumatoid arthritis, unspecified

== ENCOUNTER → 2018-02-04 | Outpatient (CLI) | payer OTHER | LOC: CAT 07:16 | DX: J32.4 Chronic pansinusitis (principal); J98.11 Atelectasis ==

== ENCOUNTER → 2018-02-10 | Outpatient (CLI) | payer OTHER ==
[2018-02-10 09:00] VITALS: BP 105/66
[2018-02-10 11:20] VITALS: BP 127/64
== END ==
LOC: OPONC 00:54
DX: K50.018 Crohn's disease of small intestine with other complication (principal)
CPT/HCPCS: 95113

== ENCOUNTER → 2018-02-19 | Outpatient (CLI) | payer OTHER ==
[~2018-02-19] MED LIST changes: -ATIVAN0.5 MG PO; -DEPO MEDRO IM; -LYRICA 75 MG CA75 MG PO; -[UNRECOGNIZED DRUG - OTHER]
[2018-02-19 11:00] VITALS: BP 106/58
[2018-02-19 12:10] VITALS: BP 129/67
[2018-02-19 12:25] VITALS: BP 104/54
[2018-02-19 12:40] VITALS: BP 101/55
[2018-02-19 12:55] VITALS: BP 93/47
[2018-02-19 14:07] VITALS: BP 96/42
== END ==
LOC: OPONC 02-16 00:48
DX: K50.818 Crohn's disease of both small and large intestine with other complication (principal); J44.9 Chronic obstructive pulmonary disease, unspecified
CPT/HCPCS: 95000; 95001

== ENCOUNTER 2018-03-08 21:45 | Inpatient (IN) | payer OTHER ==
[~2018-03-08] VITALS: Ht 154.9 cm; Wt 61.2 kg
--- NOTE | ~2018-03-08 | S ---
[facility] [place] [place] [address] SURGICAL PATH RPT PROCEDURE Name: HERMILO GEORGE Room #: 423-1 ADM IN M.R.#: [id number] Admission: 03/08/18 Date of : 55 Discharge: Report #: [id number] Path Case #: [id number] PATHOLOGY REPORT COLLECTION DATE: 03/11/2018 RECEIVED DATE: 03/11/2018 SUBMITTING PHYS: Dr. Sharyn Pool OTHER PHYS: Dr. Rufus Faye SPECIMEN(S) RECEIVED: A.Gastric edema B.Ileum at nearby obstructed anastomosis * * * * * * * * * * * * FINAL DIAGNOSIS: A. Gastric mucosa, gastric edema proximal stomach, endoscopic biopsy: - Mild chronic gastritis. - Negative for intestinal metaplasia or atrophy. - Negative for Helicobacter pylori. B. Tissue designated as "ileum at nearly obstructed anastomosis", endoscopic biopsy: - Marked acute inflammation associated with ulceration and granulation tissue, history of Crohn's colitis. - No intact epithelium present for evaluation. COMMENT: Well controlled Helicobacter pylori immunohistochemical stain performed on block A1 - negative. B: Examination shows marked acute inflammation, fibrinopurulent material, consistent with ulcer debris as well as granulation tissue. Intact epithelium is not present. There is; however, muscularis mucosae (likely) present in the biopsy tissue. History of pancolitis and Crohn's flare are provided. Findings likely represent the same. There are no viral inclusions, granulomata, or parasitic organisms present. There is no dysplasia or malignancy present as well. Clinical correlation is suggested. (IUV:db; 03/12/2018) PATHOLOGIST: Michelle Young M.D. REPORT ELECTRONICALLY SIGNED BY: Michelle Young M.D. DATE/TIME: 03/12/2018 13:11 * * * * * * * * * * * * GROSS PATHOLOGY: A. The specimen is received in formalin, labeled "George, Hermilo and biopsy of gastric edema proximal stomach", are two elongated fragment [facility] [employer] [place] [address] SURGICAL PATH RPT PROCEDURE Name: HERMILO GEORGE S Room #: 423-1 ADM IN M.R.#: [id number] Admission: 03/08/18 Date of : 55 Discharge: Report #: [id number] Path Case #: [id number] of miller soft tissues 0.8 cm and is 0.6 cm in greatest dimension, entirely submitted in A1. B. The specimen is received in formalin, labeled "George, Hermilo and biopsy of ileum at nearly obstructed anastomosis", is an irregular fragment of miller soft tissue 0.2 cm in greatest dimension, entirely submitted in B1. (SWS; 03/11/2018) CLINICAL HISTORY: Left lower quadrant abdominal pain, Crohn's flare, pancolitis per CP Gastritis, gastric edema, ulcerated ileocolic anastomosis with near total obstruction, edema of entire colon INITIAL CPT CODE(S): A; 24793, 73873 B; 61667 Professional services performed by [facility] at [facility] [employer] [address], [place] [address] Technical services performed by [facility] at [address] [place] [address], [address], [place] [address]. [facility] [address] [place] [address] PHONE: [phone] DIRECTOR: Guillermo Cortes M.D. * * * END OF REPORT * * *
--- NOTE | ~2018-03-08 | D ---
[facility] [place] [address] DISCHARGE SUMMARY Name: HERMILO GEORGE Room #: 423-1 [facility] IN ..#: [id number] Admission: 03/08/18 Attend Phys: Rufus Faye MD Discharge: 03/13/18 Date of : 55 Report #: [id number] THIS REPORT FOR: //name// CC: Deon Osorio MD PhD Juan Alberto Faye MD DATE OF SERVICE: 03/13/2018 HOSPITAL COURSE: The patient was admitted by Dr. Humphrey, in Dr. Faye's absence. At the time of admission, she had arrived in the Emergency Room with complaints of abdominal pain and nausea that began about 4-5 days prior to admission. Because of persistent nausea and vomiting and increased pain, she was admitted for further medical management. She was diagnosed with a Crohn's exacerbation, placed on IV fluids at 125 an hour, clear liquid diet, electrolyte replacement, DVT prophylaxis and GI consult was obtained. The GI wardrobe image consultant felt that the patient's left lower quadrant abdominal pain was due to Crohn's disease flare with concerns about ileocolonic anastomosis, stricturing or stenosis. It is noteworthy that prior to this admission, she had been started on generic infliximab recently. It is also noteworthy that a recent CT scan in December of this year showed pancolitis. On 03/11, the patient underwent EGD and flexible sigmoidoscopy with biopsies in both procedures. Endoscopic impressions included mild edema and patchy erythema of the stomach, normal esophagus and visualized the duodenum. While the sigmoidoscopy revealed suspected stricture just proximal to the ileocolonic anastomosis, she could not pass a colonoscope through it. Ulcerated distal ileum was noted and biopsied. Mildly edematous colon and rectum noted as well. The endoscopist recommended the patient continue on the infliximab. In addition, the patient was diagnosed with severe protein calorie malnutrition with an albumin of 2.4. As the patient will need colorectal surgery consultation and her colorectal surgeon does not come to this hospital, arrangements were made for the patient to be discharged to home with careful attention to diet and medications, as listed below. She will be seeing Dr. Osorio at the earliest available date. The patient let me know that Dr. Osei's physician's membership assistant will be working on that on Thursday morning (she is being discharged on Thursday). Biopsy reports are available in the body of the chart, but appeared to me to reflect her Crohn's disease history. DISCHARGE MEDICATIONS: Her medication list at discharge is as follows: 1. In addition to the narcotic pump, which is handled by Dr. Giles, she has [address] [address] DISCHARGE SUMMARY Name: GEORGEHERMILO Jesus Room #: 423-1 [facility] IN M..#: [id number] Admission: 03/08/18 Attend Phys: Rufus Faye MD Discharge: 03/13/18 Date of : 55 Report #: [id number] hydromorphone 2 mg tablets and takes 4 tablets by mouth 4 times daily as needed for breakthrough pain and was given a prescription for 160 of these tablets without refills. 2. Prednisone 20 mg, she takes 2 tablets by mouth daily and as directed by Dr. Faye and Sea. 3. Tizanidine 4 mg, she takes 1 tablet by mouth twice daily as needed for muscle spasms. 4. She takes magnesium oxide 400 mg 1 tablet daily as needed for leg cramps. 5. She takes vitamin B12 injections 1 mL IM daily or as directed by Dr. Faye. 6. She takes lorazepam 0.5 mg tablets 1 tablet by mouth 4 times daily as needed for anxiety. 7. She takes promethazine 25 mg 1 tablet or capsule by mouth 4 times per day as needed for anxiety or nausea. 8. She takes Tylenol 500 mg 1 or 2 tablets by mouth up to 3 times a day as needed for pain or fever. 9. She uses torsemide 20 mg 1 by mouth daily as needed for leg swelling and potassium chloride 10 mEq 1 by mouth daily with torsemide as needed for leg swelling and finally for completeness, she takes Inflectra as directed by her engineering administrator. DISCHARGE DIAGNOSES: As follows: 1. Ileocolonic anastomotic stricture. 2. Active Crohn's disease. 3. Severe malnutrition, protein calorie type. 4. Chronic abdominal pain syndrome. 5. Chronic anxiety. 6. Vitamin B12 deficiency due to Crohn's disease of the terminal ileum. 7. Chronic leg edema. 8. Dehydration. 9. Prior intestinal surgery as noted elsewhere in the record. Note that, she has a CT enterography done on 03/11 as well as the aforementioned endoscopies. Her last chemistry showed sodium 145, potassium 4.0, chloride 110, bicarbonate of 25, BUN of 7, creatinine 0.7. The anion gap is 10, glucose is 85 nonfasting. AST was 16, ALT was 6. The total bilirubin was 0.3. The alkaline phosphatase was 110, all within normal limits. Calcium was 8.5, which is lower limits of normal. Total protein 5.6, albumin 2.1 and the estimated GFR chemistry was 85. CBC done also on the showed a white count of 8200 without differential, hemoglobin was 11.7 and hematocrit 36.5. The red cell indices were essentially normal with the exception of a mildly elevated RDW of 17.7 and the platelet count was 175,000. Culture for enteric pathogens showed absence of Shiga toxin and absence of Campylobacter antigen and the culture showed no evidence of salmonella or Shigella. Interestingly, there was diminished or no gram-negative fecal francisca present on that test. Highly sensitive CRP was done, which was 33.29 during this admission. The biopsies reports read as follows: [facility] [address] [place] [address] DISCHARGE SUMMARY Name: HERMILO GEORGE Room #: 423-1 [facility] IN [facility]#: [id number] Admission: 03/08/18 Attend Phys: Rufus Faye MD Discharge: 03/13/18 Date of : 55 Report #: [id number] A. Gastric mucosa, gastric edema, proximal stomach and endoscopic biopsy: Mild chronic gastritis and negative for intestinal metaplasia or atrophy and negative for Helicobacter pylori. B. Tissue designated as ileum at nearly obstructed anastomosis, endoscopic biopsy: Marked acute inflammation associated with ulceration and granulation tissue, history of Crohn's colitis and no intact epithelium present for evaluation. There is also an extensive comment. PLAN: At the time of discharge for the patient to follow up with Dr. Lissette Osorio for consideration for surgical removal of the ileocolonic anastomosis stricture. She will follow up with Dr. Giles in the pain clinic as per routine on the of this month. She is to see Dr. Faye in followup after he returns after next week and Dr. Osei per his office. <ELECTRONICALLY SIGNED> By: Papa Finley MD 03/14/18 1136 1402 1550 Paap Finley MD /nt
[~2018-03-08 21:45] MED LIST changes: -PREDNISONE 20 M20 M1 PO
[2018-03-08 21:54] VITALS: BP 154/91
[2018-03-08 23:21] LABS: HEMATOCRIT 39.1 % (37.0-47.0); HEMOGLOBIN 12.7 gm/dL (12.0-15.0); MCHC 32.4 g/dL (28.0-37.0); MCV 89.6 fL (80.0-100.0); PLATELET COUNT 196 thou/uL (150-400); RBC 4.36 mil/uL (4.20-5.00); RDW 16.6 % (10.5-14.5); WBC 6.4 thou/uL (4.0-11.0)
[2018-03-08 23:25] LABS: CALCIUM 8.6 mg/dL (8.5-10.1)
[2018-03-08 23:30] LABS: POTASSIUM 2.9 mmol/L (3.5-5.1)
[2018-03-08 23:32] LABS: ALBUMIN 2.4 g/dL (3.4-5.0); TOTAL BILIRUBIN 0.4 mg/dL (<0.1-1.0); TOTAL PROTEIN 6.2 g/dL (6.4-8.2)
[2018-03-08 23:51] LABS: URINE BILIRUBIN NEGATIVE (Negative); URINE BLOOD NEGATIVE (Negative); URINE CLARITY CLEAR; URINE COLOR YELLOW; URINE GLUCOSE-RANDOM* NEGATIVE (Negative); URINE KETONES TRACE (Negative); URINE LEUKOCYTES-REFLEX NEGATIVE (Negative); URINE NITRITE-REFLEX NEGATIVE (Negative); URINE PROTEIN (DIPSTICK) TRACE (Negative); URINE SPECIFIC GRAVITY 1.025 (1.005-1.035); URINE UROBILINOGEN 0.2 E.U./dl (0.2-1.0)
[2018-03-08 23:52] LABS: ICTOTEST (BILI CONFIRMATORY) Negative (Negative)
[2018-03-09] VITALS (7 sets, daily range): BP systolic 85–130; BP diastolic 39–77
[2018-03-09 00:03] LABS: ABSOLUTE NEUTROPHILS 3.7 thou/uL (1.4-8.2); ANISOCYTOSIS 1+; ATYPICAL LYMPHS 3 %
[2018-03-10 04:00] VITALS: BP 102/49
[2018-03-10 06:35] LABS: CALCIUM 8.1 mg/dL (8.5-10.1); CREATININE 0.7 mg/dL (0.6-1.0); POTASSIUM 4.2 mmol/L (3.5-5.1)
[2018-03-10 07:34] VITALS: BP 89/43
[2018-03-10 12:51] LABS: HEMATOCRIT 36.5 % (37.0-47.0); HEMOGLOBIN 11.7 gm/dL (12.0-15.0); MCH 29.3 pg (26.0-34.0); MCHC 32.1 g/dL (28.0-37.0); MCV 91.3 fL (80.0-100.0); RDW 17.7 % (10.5-14.5); WBC 8.2 thou/uL (4.0-11.0)
[2018-03-10 13:05] LABS: ALBUMIN 2.1 g/dL (3.4-5.0); CALCIUM 8.5 mg/dL (8.5-10.1); CREATININE 0.7 mg/dL (0.6-1.0); TOTAL BILIRUBIN 0.3 mg/dL (<0.1-1.0); TOTAL PROTEIN 5.6 g/dL (6.4-8.2)
[2018-03-10 15:40] VITALS: BP 109/57
[2018-03-10 20:00] VITALS: BP 120/57
[2018-03-11 04:30] VITALS: BP 121/66
[2018-03-11 08:35] VITALS: BP 97/51
[2018-03-11 17:35] VITALS: BP 112/52
[2018-03-11 19:54] VITALS: BP 118/58
[2018-03-12 03:59] VITALS: BP 105/42
[2018-03-12 07:15] VITALS: BP 109/52
[2018-03-12 19:16] VITALS: BP 104/50
[2018-03-13 03:26] VITALS: BP 107/51
[2018-03-13 07:40] VITALS: BP 113/46
[2018-03-13] MEDS ORDERED: PREDNISONE 20 M20 M1 PO (14:14)
[2018-03-13] MEDS ORDERED: ACETAMINOPHEN325 M1 PO (14:14)
[2018-03-13 14:32] VITALS: BP 113/46
== END 2018-03-13 15:26 | disposition home or self-care (01) | DRG 385 ==
LOC: ER 21:45 → EROBS 23:55 → 4E 23:55
PROVIDERS: Emergency Medicine; Internal Medicine; Nurse Practitioner; Physician Assistant
DX: K50.90 Crohn's disease, unspecified, without complications (principal); E43 Unspecified severe protein-calorie malnutrition; K63.3 Ulcer of intestine; K56.699 Other intestinal obstruction unspecified as to partial versus complete obstruction; F32.9 Major depressive disorder, single episode, unspecified; M81.0 Age-related osteoporosis without current pathological fracture; E87.6 Hypokalemia; K63.89 Other specified diseases of intestine; K29.70 Gastritis, unspecified, without bleeding; F41.9 Anxiety disorder, unspecified; E55.9 Vitamin D deficiency, unspecified; E86.0 Dehydration; I95.9 Hypotension, unspecified; I48.91 Unspecified atrial fibrillation; F17.210 Nicotine dependence, cigarettes, uncomplicated; Z86.61 Personal history of infections of the central nervous system; Z68.25 Body mass index [BMI] 25.0-25.9, adult; Z90.710 Acquired absence of both cervix and uterus; Z79.899 Other long term (current) drug therapy; Z90.49 Acquired absence of other specified parts of digestive tract; Z88.2 Allergy status to sulfonamides; Z88.8 Allergy status to other drugs, medicaments and biological substances; Z91.018 Allergy to other foods
CPT/HCPCS: 10084; 62110; 62900; 70005

== ENCOUNTER → 2018-04-13 | Outpatient (CLI) | payer OTHER ==
[~2018-04-13] MED LIST changes: +PREDNISONE 20 M20 M1 PO
[2018-04-13 11:00] VITALS: BP 114/69
[2018-04-13 15:18] VITALS: BP 112/69
== END ==
LOC: OPONC 00:36
DX: K50.018 Crohn's disease of small intestine with other complication (principal)
CPT/HCPCS: 95000; 95001

== ENCOUNTER 2018-08-03 09:36 | Inpatient (IN) | payer OTHER ==
[~2018-08-03] VITALS: Ht 154.9 cm; Wt 59.4 kg
--- NOTE | ~2018-08-03 | D ---
[facility] [place] [address] DISCHARGE SUMMARY Name: HERMILO GEORGE Room #: 418-P [facility].#: [id number] Admission: 08/03/18 Attend Phys: Rufus Faye MD Discharge: 08/06/18 Date of : 55 Report #: [id number] THIS REPORT FOR: //name// CC: Deon Faye SUMMARY OF HISTORY AND PHYSICAL: The patient presented to the Emergency Room reporting a flareup in her Crohn's symptoms that began the week previously and became progressively worse over the previous 3 days. The symptoms were usual for her with diffuse cramping abdominal pain, progressed to nausea, diarrhea and then vomiting and not able to keep any oral fluids down. In the Emergency Room, she was found to be dehydrated and to have electrolyte disturbances with a potassium that was low at 3.0 and a magnesium low at 1.6. Her abdominal examination showed diffuse tenderness and guarding. She required admission for intravenous fluid replacement, intravenous electrolyte replacement, and a specialty reevaluation of the status of her Crohn's disease. SUMMARY OF HOSPITAL COURSE: She was seen in GI consultation. She initially declined then accepted a CT scan of her abdomen. It was felt that a colonoscopy and direct visualization of the anastomosis between her terminal ileum and her remaining colon was important. Therefore, on 08/05/2018, she underwent diagnostic colonoscopy with pictures. There was terminal ileitis with ulcerations at the terminal ileum as before. Dr. Pool performed the procedure and she reported swelling and edema of the anastomosis itself. The residual lumen was quite small and too small to admit the smaller scope. There were also technical difficulties regarding the "floppiness" of both remaining colon and the scope that did not allow passage of the scope through the lumen. However, Dr. Pool was able to view beyond the anastomosis and it appeared that all of the abnormalities were limited to the anastomotic area and not the rest of the visualized small bowel. This led to the hope that adequate treatment of her Crohn's in this area might allow for resolution of the stenosis and allowing small bowel fluid to pass more easily, allowing her to eat and reduced pain. The patient had a biosimilar Remicade infusion in 03/2018, but reported having breathing difficulties during that infusion and for this reason, she skipped her scheduled infusion in May. Dr. Sharyn Pool discussed this in detail with the patient. The patient felt more secure about the possibility of experiencing "another shaking episode" with the name brand Remicade, and was willing to undergo an infusion of name brand Remicade. Dr. Pool had made arrangements with the staff of Dr. Osei's office to get this procedure certified and scheduled. She did feel stronger with her intravascular fluid volume restored and correction of her electrolytes. Hydromorphone was in short supply at the [address] [address] DISCHARGE SUMMARY Name: ARIELHERMILO S Room #: 418-P [facility] IN ..#: [id number] Admission: 08/03/18 Attend Phys: Rufus Faye MD Discharge: 08/06/18 Date of : 55 Report #: [id number] hospital and she was therefore treated with intravenous morphine for and achieved adequate pain relief. In the process of replacing her potassium, she did have an elevated blood level 6.0 followed by 5.4. However, these values were felt to be falsely elevated because the IV fluid she had been receiving included potassium, and it was difficult to completely flush the tubing prior to drawing. It is technically difficult to completely flush the tubing accessing her Infusaport prior to drawing blood. There were no EKG abnormalities present. The GI service did treat this flare of Crohn's disease with intravenous corticosteroids and did plan on a name brand Remicade infusion in the future to avoid excessive steroid medication use. With adequate fluid resuscitation, her heart rate dropped from 120 on admission to 60-70. LABORATORY DATA: Potassium is 3.1 on admission, and 4.0 at discharge. She had loose stools, and to replace potassium losses in her stools, she is to resume her oral potassium at home. Her magnesium level was low at 1.7 and replaced with a single infusion of 2 grams. Her creatinine remained stable at 0.1 and her BUN stable at 11, note is made she has a very small skeletal muscle mass and that this number likely over represents renal function. Alkaline phosphatase remained mildly elevated at 184. Albumin was low at 2.1 on admission. WBCs were mildly elevated at 11.1 on admission, sushma to 13.4 in response to corticosteroids. Hemoglobin was 12.3 on admission, reflecting volume depletion, and was stable at 11.0 at discharge. Methylmalonic acid level was drawn to assess adequacy of her taking IM B12 at home and was pending at discharge. Highly sensitive C-reactive protein was markedly elevated at 66.78, it had been 33.29 back in 02/2018, and even lower at 10.58 in 07/2017 when hospitalized on those occasions. Urinalysis was remarkable for ketones and a trace of protein and was otherwise normal. CT scan of the abdomen and pelvis ultimately was performed and compared with 01/04/2018. Mild steatosis of the liver was present. The ISAIAH arterial stent was noted to remain in its normal position. A tortuous distal sigmoid colon was seen as well as evidence of previous right hemicolectomy. There was diffuse mucosal enhancement and wall thickening compatible with radiographic findings of diffuse colitis. An infusion pump device was seen overlying the right flank with a small associated catheter entering the spinal canal at the L2 level and extended up into the thoracic region beyond the field of view. Views of the small bowel did not show evidence of Crohn's disease. [facility] [address] [place] [address] DISCHARGE SUMMARY Name: HERMILO GEORGE Room #: 418-P [facility]#: [id number] Admission: 08/03/18 Attend Phys: Rufus Faye MD Discharge: 08/06/18 Date of : 55 Report #: [id number] On colonoscopy, the visualized terminal ileum was edematous and erythematous. Portions of the terminal ileum proximal to the specific anastomotic area appeared to be normal and uninvolved to Dr. Pool per verbal report. The remaining colon after the right colon resection appeared only somewhat edematous in places, but overall demonstrated excellent vascular pattern without obvious Crohn's inflammation according to Dr. Pool. Small internal hemorrhoidal veins were seen that were not bleeding in the rectal area. DISCHARGE DIAGNOSES: 1. Acute flare of Crohn's disease treated with corticosteroids. It was due to absence of biological infusion treatment since 03/2018. Note is made that hs-CRP is more elevated now than it was back in December 2017. 2. Active Crohn's inflammation seen endoscopically at the anastomosis. 3. Patchy colitis was seen throughout the remaining colon - no biopsies were taken on this procedure, photographs were taken. The colon was "relatively normal" according to the endoscopist. 4. Chronic abdominal pain that has been increased recently to a similar degree as expected by the active colitis findings related to the lack of recent treatment for her inflammatory bowel disease. 5. Chronic pain managed by Dr. Juan Alberto Giles. 6. Dehydration and electrolyte disturbance of potassium and magnesium - replaced with intravenous fluids and electrolytes. 7. Factitiously elevated potassium levels related to drawing the blood samples through IV lines accessing her Port-A-Cath that contained potassium. 8. Severe malnutrition persists. 9. Vitamin B12 deficiency, on weekly, vitamin B12 injections - methylmalonic acid level is pending at the time of dictation. 10. Past history of edema - was edema not present on this admission. 11. Multifactorial anemia - chronic disease as well as small amounts of blood loss from the active Crohn's disease at the anastomosis. 12. Chronic obstructive pulmonary disease. 13. Gastroesophageal reflux disease. 14. Active smoker. 15. 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 16. Very distant history of retroperitoneal fibrosis. 17. Persistent elevated alkaline phosphatase of uncertain etiology. 18. History of perianal abscesses with fistulas in the past. 19. History of osteoporosis. 20. History of anxiety. 21. History of multiple back surgeries. 22. History of multiple abdominal surgeries. 23. History of atrial fibrillation in isolation 05/30/2015. 24. Implanted narcotic pain pump with an intrathecal catheter - chronic pain managed by Dr. Juan Alberto Giles. [address] [address] DISCHARGE SUMMARY Name: HERMIOL GEORGE Room #: 418-P [facility] IN ..#: [id number] Admission: 08/03/18 Attend Phys: Rufus Faye MD Discharge: 08/06/18 Date of : 55 Report #: [id number] 25. History of kyphoplasty for osteoporotic compression fractures. 26. Mild mitral insufficiency on echocardiogram on 05/30/2015, ejection fraction 65%. 27. Gastroparesis - note is made in part due to high chronic opioid medications. 8. Difficulty breathing after biosimilar Remicade infusion March 2018. 29. Humira was not effective at controlling her Crohn's disease in 12/2017. 30. Hepatic steatosis. 31. History of long stenotic segment of the distal small bowel close to the anastomosis. 32. Anxiety due to long-term difficulty with Crohn's disease. PLAN: 1. The patient is put in contact with the staff at Dr. Osei's office to perform the precertification and arrange for infusion of name brand Remicade product soon to treat her Crohn's disease. She is to resume the 10 mEq of potassium tablet she has at home that has not been taking to keep her potassium levels normal and compensate for losses in her loose stools. She was encouraged to stop smoking. She is to continue her hydromorphone 4 mg tablets 2 tablets every 6 hours as needed for breakthrough pain with #56 tablets for 7-day supply being prescribed for her on 08/06/2018. She is to return to see Dr. Giles on 08/12/2018 since she missed her appointment with him earlier this week because she was hospitalized. 2. She is to get blood drawn at [facility] in about a month for a CMP, CBC, CRP, methylmalonic acid, and magnesium level using the diagnoses of B12 deficiency, Crohn's disease, anemia, low potassium and low magnesium. 3. She is to resume torsemide 20 mg once daily if her legs began to swell again. Continue to use tizanidine 4 mg 3 times daily if needed for muscle relaxer and promethazine 25 mg capsules/tablets every 6 hours as needed for nausea. Continue B12 1000 mcg/mL 1 mL IM every week. Lorazepam 0.5 mg 4 times daily. Magnesium oxide 400 mg once daily. Her pain pump remains functional and under the direction of Dr. Giles. 4. She is to see Dr. Giles on 08/12/2018 for pain management. She is to follow up with Dr. Osei's staff to his office and receive a name brand [facility] [address] [place] [address] DISCHARGE SUMMARY Name: HERMILO GEORGE Room #: 418-P [facility] IN [facility].#: [id number] Admission: 08/03/18 Attend Phys: Rufus Faye MD Discharge: 08/06/18 Date of : 55 Report #: [id number] Remicade infusion. She is to see me in my office in about 3-4 weeks and to have blood drawn ahead of time. <ELECTRONICALLY SIGNED> By: Rufus Faye MD 08/06/18 1632 1428 1604 Rufus Faye MD /nt
--- NOTE | ~2018-08-03 | H ---
[facility] [place] [address] HISTORY AND PHYSICAL Name: HERMILO GEORGE Room #: 418-P [facility]#: [id number] Admission: 08/03/18 Attend Phys: Rufus Faye MD Discharge: 08/06/18 Date of : 55 Report #: [id number] THIS REPORT FOR: //name// CC: Rufus Faye DATE OF SERVICE: 08/03/2018 CHIEF COMPLAINT: Abdominal pain, nausea and vomiting and diarrhea. HISTORY OF PRESENT ILLNESS: For the last 1-2 weeks, the patient has had progressive symptoms of a flare of her Crohn's disease. She has had an increase in her pain, followed by inability to drink or eat, and finally came to the Emergency Room. Clinically, she was dehydrated. Her potassium was low. Her magnesium is low at 1.7, and her potassium was low at 3.1, and she required inpatient hospital stay for intravenous fluid replacement and intravenous electrolyte replacement. PAST MEDICAL HISTORY: Please see her complete and numerous dictated hospital records over the last several years. Most recently, she had a biosimilar Remicade infusion in March during which she experienced difficulty breathing. She had a second infusion scheduled for May that she skipped because of a fear of breathing trouble again. For this reason, she has had progressive abdominal pain and symptoms as her Crohn's disease is escaping previous treatment from the Remicade infusion in March. REVIEW OF SYSTEMS: Negative except for the HPI above. PHYSICAL EXAMINATION: GENERAL: The patient is awake and alert and oriented. HEENT: The oral mucosa is quite dry. LUNGS: Clear. CARDIOVASCULAR: Heart tones are normal. The rhythm is regular, but the heart rate is elevated at 120. ABDOMEN: Soft, bowel sounds are relatively diminished. There is diffuse tenderness to palpation. EXTREMITIES: She does not have any edema in the extremities. LABORATORY DATA: Potassium is 3.1. Magnesium is 1.7. ASSESSMENT: 1. An acute flare of her Crohn's disease. 2. Crohn's has not been treated since March. 3. Marked dehydration and volume depletion. 4. Electrolyte abnormalities. 5. Mild chronic anemia. 6. Other multiple medical problems detailed in her previous records. [address] [address] HISTORY AND PHYSICAL Name: HERMILO GEORGE Room #: 418-P [facility] IN [facility]#: [id number] Admission: 08/03/18 Attend Phys: Rufus Faye MD Discharge: 08/06/18 Date of : 55 Report #: [id number] PLAN: The patient is admitted for intravenous fluids, and intravenous electrolyte replacement. She requests a "high dose" nicotine patch because she knows she will be unable to smoke in the hospital. GI consultation is being obtained to plot further treatments for her Crohn's disease as well as managing this current flare. A repeat colonoscopy and IV solumedrol are being planned. <ELECTRONICALLY SIGNED> By: Rufus Faye MD 08/06/18 1634 1436 1457 Rufus Faye MD /fina
[2018-08-03 10:02] VITALS: BP 132/90
[2018-08-03 11:05] LABS: URINE BLOOD NEGATIVE (Negative); URINE CLARITY CLEAR; URINE COLOR YELLOW; URINE GLUCOSE-RANDOM* NEGATIVE (Negative); URINE KETONES 1+ (Negative); URINE LEUKOCYTES-REFLEX NEGATIVE (Negative); URINE NITRITE-REFLEX NEGATIVE (Negative); URINE PROTEIN (DIPSTICK) TRACE (Negative); URINE SPECIFIC GRAVITY 1.025 (1.005-1.035); URINE UROBILINOGEN 0.2 E.U./dl (0.2-1.0)
[2018-08-03 11:11] LABS: ICTOTEST (BILI CONFIRMATORY) Negative (Negative); URINE BILIRUBIN NEGATIVE (Negative)
[2018-08-03 11:44] LABS: BASOPHILS 0.4 % (0.0-2.0); EOSINOPHILS 0.2 % (0.0-3.0); HEMATOCRIT 37.9 % (37.0-47.0); HEMOGLOBIN 12.3 gm/dL (12.0-15.0); LYMPHOCYTES 10.8 % (24.0-44.0); MCH 27.8 pg (26.0-34.0); MCHC 32.6 g/dL (28.0-37.0); MCV 85.3 fL (80.0-100.0); MONOCYTES 7.6 % (1.0-8.0); PLATELET COUNT 288 thou/uL (150-400); RBC 4.44 mil/uL (4.20-5.00); RDW 18.8 % (10.5-14.5); WBC 11.1 thou/uL (4.0-11.0)
[2018-08-03 11:54] LABS: CALCIUM 8.6 mg/dL (8.5-10.1); CREATININE 0.8 mg/dL (0.6-1.0); POTASSIUM 3.1 mmol/L (3.5-5.1)
[2018-08-03 12:00] LABS: ALBUMIN 2.1 g/dL (3.4-5.0); DIRECT BILIRUBIN 0.1 mg/dL (<0.1-0.3); TOTAL BILIRUBIN 0.5 mg/dL (<0.1-1.0); TOTAL PROTEIN 6.1 g/dL (6.4-8.2)
[2018-08-03 12:08] LABS: ANISOCYTOSIS 1+; PLATELET ESTIMATE NORMAL
[2018-08-03 16:28] VITALS: BP 125/74
[2018-08-03 17:00] VITALS: BP 123/78
[2018-08-03 17:48] VITALS: BP 144/84
[2018-08-03 19:44] VITALS: BP 134/76
[2018-08-03 23:58] LABS: CALCIUM 8.8 mg/dL (8.5-10.1); CREATININE 0.9 mg/dL (0.6-1.0)
[2018-08-04 02:04] LABS: HEMATOCRIT 41.5 % (37.0-47.0); MCH 26.9 pg (26.0-34.0); MCHC 31.4 g/dL (28.0-37.0); MCV 85.8 fL (80.0-100.0); RBC 4.84 mil/uL (4.20-5.00); RDW 19.2 % (10.5-14.5); WBC 7.9 thou/uL (4.0-11.0)
[2018-08-04 02:15] LABS: ALBUMIN 2.1 g/dL (3.4-5.0); CALCIUM 8.4 mg/dL (8.5-10.1); CREATININE 0.8 mg/dL (0.6-1.0); MAGNESIUM 1.6 mg/dL (1.8-2.4); POTASSIUM 5.4 mmol/L (3.5-5.1); TOTAL BILIRUBIN 0.4 mg/dL (<0.1-1.0); TOTAL PROTEIN 6.5 g/dL (6.4-8.2)
[2018-08-04 04:38] VITALS: BP 125/70
[2018-08-04 07:05] VITALS: BP 132/67
[2018-08-04 18:21] LABS: CALCIUM 8.7 mg/dL (8.5-10.1); CREATININE 0.9 mg/dL (0.6-1.0); POTASSIUM 5.1 mmol/L (3.5-5.1)
[2018-08-04 19:10] VITALS: BP 100/52
[2018-08-04 20:00] VITALS: BP 121/59
[2018-08-05 04:30] VITALS: BP 111/58
[2018-08-05 07:34] VITALS: BP 135/65
[2018-08-05 08:32] LABS: HEMOGLOBIN 11.3 gm/dL (12.0-15.0); MCH 26.9 pg (26.0-34.0); MCHC 31.4 g/dL (28.0-37.0); MCV 85.8 fL (80.0-100.0); RBC 4.2 mil/uL (4.20-5.00); RDW 19.3 % (10.5-14.5); WBC 13.4 thou/uL (4.0-11.0)
[2018-08-05 08:38] LABS: CALCIUM 8.8 mg/dL (8.5-10.1); CREATININE 0.8 mg/dL (0.6-1.0)
[2018-08-05 08:39] LABS: POTASSIUM 3.8 mmol/L (3.5-5.1)
[2018-08-05 19:10] VITALS: BP 115/56
[2018-08-06 04:05] VITALS: BP 145/89
[2018-08-06 07:30] VITALS: BP 126/66
[2018-08-06 08:07] LABS: HEMATOCRIT 34.4 % (37.0-47.0); MCH 27.2 pg (26.0-34.0); MCHC 31.9 g/dL (28.0-37.0); MCV 85.4 fL (80.0-100.0); RBC 4.03 mil/uL (4.20-5.00); RDW 18.7 % (10.5-14.5); WBC 12.3 thou/uL (4.0-11.0)
[2018-08-06 08:14] LABS: CALCIUM 8.6 mg/dL (8.5-10.1); CREATININE 0.7 mg/dL (0.6-1.0); MAGNESIUM 1.8 mg/dL (1.8-2.4)
[2018-08-06 13:24] VITALS: BP 143/79
[2018-08-06 13:28] VITALS: BP 143/79
== END 2018-08-06 15:47 | disposition home or self-care (01) | DRG 386 ==
LOC: ER 09:36 → EROBS 15:10 → 4E 15:10
PROVIDERS: Emergency Medicine; Internal Medicine
PROC: 0DJD8ZZ Inspection of Lower Intestinal Tract, Via Natural or Artificial Opening Endoscopic (ICD-10-PCS; principal; 2018-08-05)
DX: K50.80 Crohn's disease of both small and large intestine without complications (principal); E46 Unspecified protein-calorie malnutrition; K63.3 Ulcer of intestine; K52.9 Noninfective gastroenteritis and colitis, unspecified; I48.91 Unspecified atrial fibrillation; F32.9 Major depressive disorder, single episode, unspecified; G89.29 Other chronic pain; E86.0 Dehydration; E87.8 Other disorders of electrolyte and fluid balance, not elsewhere classified; E53.8 Deficiency of other specified B group vitamins; K31.84 Gastroparesis; D63.8 Anemia in other chronic diseases classified elsewhere; D50.0 Iron deficiency anemia secondary to blood loss (chronic); K64.8 Other hemorrhoids; J44.9 Chronic obstructive pulmonary disease, unspecified; K21.9 Gastro-esophageal reflux disease without esophagitis; I25.10 Atherosclerotic heart disease of native coronary artery without angina pectoris; M81.0 Age-related osteoporosis without current pathological fracture; F17.210 Nicotine dependence, cigarettes, uncomplicated; Z95.5 Presence of coronary angioplasty implant and graft; Z90.49 Acquired absence of other specified parts of digestive tract; Z90.710 Acquired absence of both cervix and uterus; Z87.442 Personal history of urinary calculi; Z79.899 Other long term (current) drug therapy; Z88.2 Allergy status to sulfonamides; Z88.8 Allergy status to other drugs, medicaments and biological substances
CPT/HCPCS: 10783; 62110; 62900

== ENCOUNTER 2018-08-25 23:52 | Inpatient (IN) | payer OTHER ==
[~2018-08-25] VITALS: Ht 157.5 cm; Wt 57.4 kg
--- NOTE | ~2018-08-25 | HC ---
[facility] [address] [place] [address] CONSULTATION Name: HERMILO GEORGE Room #: 244-P [facility] IN M.R.#: [id number] Admission: 08/26/18 Attend Phys: Rufus Faye MD Discharge: 08/26/18 Date of : 55 Report #: [id number] THIS REPORT FOR: //name// CC: Deon Eduardo DATE OF SERVICE: 08/26/2018 This is a 63-year-old. Dictation Ends Here. <ELECTRONICALLY SIGNED> By: Hiro Choi MD 08/30/18 0947 1336 0019 Hiro Choi MD /nt
--- NOTE | ~2018-08-25 | D ---
[facility] [place] [address] DISCHARGE SUMMARY Name: HERMILO GEORGE Room #: 244-P [facility] IN ..#: [id number] Admission: 08/26/18 Attend Phys: Rufus Faye MD Discharge: 08/26/18 Date of : 55 Report #: [id number] THIS REPORT FOR: //name// CC: Deon Eduardo DATE OF SERVICE: 08/26/2018 Please see dictated history and physical for complete details. SUMMARY OF THE HOSPITAL COURSE: Please see history and physical for details regarding the patient's presentation to the Emergency Room with a new in status epilepticus. The patient is well known to me and the hospital staff. She has never had a seizure in the past. Apparently, she was seizing at [facility], although the actual location of the EMS pecan picker is not known, nor how EMS was notified that the patient was seizing. She was brought by EMS because of a witnessed seizure at the originating location, she had a seizure en route, and in the Emergency Room, she was in status epilepticus. She was heavily sedated with propofol and endotracheal tube was placed and she was placed on a ventilator and transferred to the Intensive Care Unit. In the Intensive Care Unit, she remained stable on a propofol infusion and remained nonresponsive, adequately supported by the ventilator. There is no obvious seizure activity while on propofol infusion. She was seen in Pulmonary Medicine/Critical Care consultation by Dr. Ryan Eduardo. She was seen in GI consultation by Dr. Sharyn Pool. She had not received any biologics since an infusion in March. She had received steroids at [facility] last week. No new treatment for Crohn's disease was recommended until the seizure issue had been settled. She was seen in infectious disease consultation by Dr. Eddie Townsend. Antibiotics for possible meningitis and general antibiotic coverage were ordered including antiviral agents. She did have an implanted pain pump with an intrathecal catheter. After admission, we belatedly realized that we do not have personnel nor the equipment to query or adjust the pain pump or determine if its contents have anything to do with the patient's seizures. Therefore, she required transfer to a facility that did have those resources. She was accepted by the [facility] and transferred in stable condition in the afternoon. [address] [address] DISCHARGE SUMMARY Name: HERMILO GEORGE Room #: 244-P [facility] IN M.R.#: [id number] Admission: 08/26/18 Attend Phys: Rufus Faye MD Discharge: 08/26/18 Date of : 55 Report #: [id number] DISCHARGE DIAGNOSIS: Remain the same as the admitting diagnosis, please see the history and physical. By: [id number] Rufus Faye MD /nt
--- NOTE | ~2018-08-25 | HC ---
[facility] [place] [address] CONSULTATION Name: HERMILO GEORGE Room #: 244-P [facility] IN ..#: [id number] Admission: 08/26/18 Attend Phys: Rufus Faye MD Discharge: 08/26/18 Date of : 55 Report #: [id number] THIS REPORT FOR: //name// CC: Deon Eduardo DATE OF SERVICE: 08/26/2018 INFECTIOUS DISEASES CONSULTATION REASON FOR CONSULTATION: Evaluate new onset of seizures. HISTORY OF PRESENT ILLNESS: The patient is a 63-year-old with history of fistulizing Crohn disease, C. difficile colitis, VRE, chronic pain with a lumbar pain pump in place. She had been hospitalized on 08/03/2018 with a flare of her Crohn disease. She remains on biologic agent for immunosuppression. Most recently, was on Inflectra. During that hospital stay, she had a colonoscopy, which showed terminal ileitis with ulceration, but otherwise unremarkable colon. She continued on her immunosuppression. Hospitalized at [facility] where she was admitted on 08/19/2018 where she is evaluated for confusion. She had an MRI scan, which is yet not available. She has remained on corticosteroids. Apparently discharged on 08/23/2018. Had acute onset of seizures and brought into the Emergency Room where she was intubated. She now is on propofol. Seizures now have abated. She had CT scan of the head, which showed diffuse multifocal lucencies in both cerebral hemispheres and left cerebellar hemisphere. No documented fever. The patient was intubated and sedated and unable to give any further history. History was gleaned from the chart and discussion with nursing staff. REVIEW OF SYSTEMS: A 10-point review of systems unable to be reported due to the patient's obtundation. PAST MEDICAL HISTORY: Previous infected pain pump, left lumbar hemilaminectomy and diskectomy, L1 compression fracture, Crohn disease, peripheral vascular disease, stent to the inferior mesenteric artery, COPD, smoker of cigarettes, poor venous access, right chest Port-A-Cath, malnutrition, peripheral edema, gastroesophageal reflux, chronic pain syndrome, retroperitoneal fibrosis, osteoporosis, anxiety, atrial fibrillation, multiple abdominal surgeries, distal small bowel stenosis. MEDICATIONS: As noted on her MAR, which were reviewed. She did receive acyclovir, vancomycin, ceftriaxone, metronidazole. Also, is on Solu-Medrol. [address] [address] CONSULTATION Name: HERMILO GEORGE Room #: 244-P [facility] IN [facility].#: [id number] Admission: 08/26/18 Attend Phys: Rufus Faye MD Discharge: 08/26/18 Date of : 55 Report #: [id number] FAMILY HISTORY: Noncontributory. SOCIAL HISTORY: She is a smoker of cigarettes. ALLERGIES: SULFA, MESALAMINE, ZOLPIDEM, GREEN PEPPERS. PHYSICAL EXAMINATION: GENERAL AND VITAL SIGNS: Currently intubated and sedated on the ventilator. She does move all extremities. She would not awaken. Vital signs were stable. Orally intubated. Orogastric tube in place. Right chest Port-A-Cath access was unremarkable. No surrounding erythema. HEENT: Pupils were equal, round and reactive. No scleral icterus or conjunctivitis. Mouth without lesion. NECK: Supple. LUNGS: Clear. HEART: Regular without murmur, gallop or rub. ABDOMEN: Soft and nontender. Right abdomen pain pump pocket was unremarkable. The lumbar spine insertion site of her catheter was unremarkable. The catheter was palpable with no surrounding erythema or fluctuance. EXTREMITIES: Muscle atrophy, otherwise no significant peripheral edema or cyanosis. SKIN: Multiple striae and bruising. LYMPH: No palpable adenopathy. NEUROLOGIC: Otherwise nonfocal. PSYCHIATRIC: Unable to evaluate. LABORATORY STUDIES: Urinalysis unremarkable. INR 1.1. Lactate 6.4. Sodium 137, potassium 2.7, bicarbonate 31, creatinine 0.8. Liver function test normal. TSH 0.3, Hemoglobin 12.6, WBC 17.7, platelet count 260,000. CT of the head as noted above. CT scan of the chest and abdomen showed no pulmonary embolus or significant pulmonary infiltrate. She did have some atelectasis. She had diffuse colon thickening. No intraabdominal abscess evident. IMPRESSION AND PLAN: 1. Status epilepticus in a patient with immunosuppression for Crohn disease. Multiple brain lesions concerning for ischemia. Meningitis or cerebritis would also be considered. She has ongoing Crohn disease with evidence of colonic thickening. No intraabdominal abscess. 2. Chronic obstructive pulmonary disease. 3. B12 deficiency. RECOMMENDATION: Broad antibiotic coverage. MRI scan of the head and lumbar [address] [address] CONSULTATION Name: HERMILO GEORGE Room #: 244-P [facility] IN [facility].#: [id number] Admission: 08/26/18 Attend Phys: Rufus Faye MD Discharge: 08/26/18 Date of : 55 Report #: [id number] spine. Lumbar puncture. Cultures of blood, sputum and CSF. Hold further immunosuppression other than replacement steroids. <ELECTRONICALLY SIGNED> By: Eddie Townsend MD 09/03/18 1337 1104 0151 Eddie Townsend MD /nt
--- NOTE | ~2018-08-25 | HC ---
[facility] [place] [address] CONSULTATION Name: HERMILO GEORGE Room #: 244-P [facility] IN M.R.#: [id number] Admission: 08/26/18 Attend Phys: Rufus Faye MD Discharge: 08/26/18 Date of : 55 Report #: [id number] THIS REPORT FOR: //name// CC: Deon Eduardo TYPE OF REPORT: Pulmonary consultation. PRIMARY CARE PHYSICIAN: The patient. REFERRING PHYSICIAN: Rufus Faye M.D. REASON FOR REFERRAL: Acute respiratory failure. HISTORY OF PRESENT ILLNESS: The patient is a 63-year-old white female who was brought to the Emergency Room following a seizure. A Pulmonary consultation was requested. The patient has been at the [facility] for ongoing management of meningitis. She subsequently developed a seizure and was brought to the Emergency Room. The patient had another seizure en route to the Emergency Room. In the ER, she was subsequently intubated to control the airways. She was given propofol. CT head was notable for diffuse multifocal lucencies. She is currently sedated. Plans are to transfer to later today. PAST MEDICAL HISTORY: Notable for history of meningitis related to infected pain pump, which was removed and the procedure was performed at the [facility]; she has had prior lumbar hemilaminectomy; diskectomy; history of Crohn's disease with multiple hospitalizations and bowel surgery for Crohn's disease and she is followed by Dr. Deon Osei's office. She has history of coronary artery disease, undergoing stent placement; history of myocardial infarction; COPD; active tobacco smoker; severe malnutrition; chronic lower extremity edema; gastroesophageal reflux disease; chronic pain requiring chronic opiates; gastroparesis; retroperitoneal fibrosis; multiple back surgeries; multiple abdominal surgeries and history of atrial fibrillation. ALLERGIES: To SULFA, which causes anaphylaxis; GREEN PEPPER, reactions unspecified; MESALAMINE, causes pancreatitis and ZOLPIDEM, causes amnesia. HOME MEDICATIONS: Include Dilaudid, Phenergan, Klor-Con, Depo-Medrol, Lyrica, Valium and Ativan. FAMILY HISTORY: Noncontributory. [facility] [address] [place] [address] CONSULTATION Name: HERMILO GEORGE Room #: 244-P [facility].#: [id number] Admission: 08/26/18 Attend Phys: Rufus Faye MD Discharge: 08/26/18 Date of : 55 Report #: [id number] SOCIAL HISTORY: The patient does smoke about a pack a day. No alcohol use. REVIEW OF SYSTEMS: Deferred as the patient is intubated. PHYSICAL EXAMINATION: GENERAL: She is sedated. VITAL SIGNS: Temperature is 98.5 degrees Fahrenheit, pulse is 80, respiratory rate 14, blood pressure is 150/80 mmHg and saturation 100%. HEENT: Unremarkable. NECK: Supple, without any lymphadenopathy or thyromegaly. CHEST: Breath sounds are clear bilaterally without any rales or wheezes. CARDIOVASCULAR: Normal S1 and S2. No murmurs or gallop. There is no JVD. There is no carotid bruit. Pulses are 2+/4+ bilaterally. ABDOMEN: Soft and nontender. No organomegaly or masses felt. GENITOURINARY: Deferred. RECTAL: Deferred. EXTREMITIES: No edema, cyanosis or clubbing. RADIOLOGICAL DATA: Portable chest x-ray shows cardiomegaly, increase in left atrial border and mild increase in pulmonary vascular markings. EKG shows no acute ischemic changes. CT chest angiogram shows no evidence of pulmonary embolus, patchy bibasilar atelectasis is noted and pancolitis is suggested. CT head shows multiple new areas of decreased attenuation in the left and right cerebral hemisphere and left cerebellum. LABORATORY DATA: Sodium 137, potassium 2.7, chloride 95, CO2 31, BUN is 10 and creatinine 0.8. Liver function mildly abnormal, WBC 17,700 without a significant bandemia; hemoglobin 12.6 and platelets are normal. Troponin 0.8. Arterial blood gas revealed pH 7.43, pCO2 of 41 and pO2 of 93. Acetaminophen level is normal. Salicylate level is less than 3. Albumin 3.2. IMPRESSION: 1. Acute hypoxic respiratory failure in this 63-year-old white female secondary to a seizure disorder. CT head as mentioned above showing multiple new areas of lucency. 2. 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 3. Hypokalemia. 4. Crohn's disease with multiple abdominal surgeries. 5. History of pancreatitis. 6. Chronic pain, on chronic narcotics as mentioned above. 7. Depression. 8. History of nephrolithiasis. 9. History of retroperitoneal fibrosis. 10. Gastroparesis. 11. Status post Port-A-Cath placement in the right. [facility] [address] [place] [address] CONSULTATION Name: HERMILO GEORGE Room #: 244-P [facility] M.R.#: [id number] Admission: 08/26/18 Attend Phys: Rufus Faye MD Discharge: 08/26/18 Date of : 55 Report #: [id number] 12. History of atrial fibrillation. RECOMMENDATIONS: We will continue mechanical ventilation. No plans for weaning at this time. Plans for transfer to for ongoing management of the intrathecal pump noted. DVT and GI prophylaxis recommended. Wean O2 for saturation 90%. Thank you for this consultation. CRITICAL CARE TIME: One hour. <ELECTRONICALLY SIGNED> By: Ryan Eduardo MD 08/27/18 [id number] Ryan Eduardo MD /nt
--- NOTE | ~2018-08-25 | H ---
[facility] [place] [address] HISTORY AND PHYSICAL Name: HERMILO GEORGE Room #: 244-P [facility] IN M.R.#: [id number] Admission: 08/26/18 Attend Phys: Rufus Faye MD Discharge: Date of : 55 Report #: [id number] THIS REPORT FOR: //name// CC: Deon Eduardo DATE OF SERVICE: 08/26/2018 CHIEF COMPLAINT: Status epilepticus, confusion, suspected meningitis/cerebritis. HISTORY OF PRESENT ILLNESS: Information is obtained entirely from the Emergency Room physician and from the Emergency Room record, and patient discharge form from [facility] dated 08/23/2018. The patient was brought by EMS apparently from [facility] in the early hours of the morning because of a seizure. A second seizure occurred en route. Please see Dr. Sharyn Cook's Emergency Room record. In the Emergency Room, she continued to have seizures and was intubated and put under general anesthesia with propofol to stop the seizure activity. CT scan of her head was abnormal with new diffuse multifocal lucencies in both the cerebral hemispheres and the left cerebellar hemisphere. Her white blood cell count was markedly elevated. Additional history was recorded from a telephone call with the Emergency Room physician and the patient's son who lives in [place]; she had been confused and was admitted at [facility] the records show on 08/19/2018 and discharged on 08/23/2018. An MRI was apparently performed because of her confusion on 08/22/2018, and those results are not available, but the son was told that it was normal. In any case, the results were not sufficiently abnormal to preclude her being discharged on 08/23/2018 without any new medications. Noted is that she was given oral prednisone while at the hospital, and given methylprednisolone 40 mg IM on the day of discharge, and may have received it earlier in that hospital stay. The indication for the steroid medication is not known, but she has been dealing with a flare in her Crohn's. Additional note is that she was treated with valacyclovir 1 gram twice daily while at [facility] for an unknown period of time while at the hospital. Ceftriaxone 1 gram daily was also given. PAST MEDICAL HISTORY: Past medical history is extensive. Most pertinent is that she has not had history of seizures before, nor cerebritis. She did have [address] [address] HISTORY AND PHYSICAL Name: HERMILO GEORGE Room #: 244-P [facility] IN [facility]#: [id number] Admission: 08/26/18 Attend Phys: Rufus Faye MD Discharge: Date of : 55 Report #: [id number] meningitis that was treated at [facility] in conjunction with an infected pain pump and catheter that had to be removed. Those procedures were done at [facility]. Accompanying her records show lumbar hemilaminectomy and diskectomy on 11/23/2013, catheter and leads removed from the intrathecal pump on 04/23/2015, and the pump itself removed on 04/24/2015 with wound debridement/cultures/dehiscence/I and D/possible L1 compression fracture on 05/28/2015 with intrathecal pump and catheter replaced on 08/23/2015. She has had a long history of Crohn's disease with multiple hospitalizations here, most recently 08/03/2018 to 08/06/2018 at which time she was found to have active inflammation and ulcers at the terminal ileum where the anastomosis with the remaining colon is. There is approximately 20 cm strictured area at the terminal ileum, but it appeared to the endoscopist not to be involved, just the anastamosis area. She has experienced complication with the use of Inflectra/biosimilar Remicade on 03/2018 involving breathing difficulties, skipped her scheduled infusion for May and for this reason, presented with a flare of Crohn's on 08/03/2018. Plans were made for her to receive name brand Remicade through Dr. Osei's office, but the precert has not been approved and therfore her last infusion was in March 2018. She has atherosclerosis and has had a stent to the inferior mesenteric artery. She has COPD and continues to smoke. She has poor venous access and for this reason has an Infusaport in the right upper chest. She has severe malnutrition and difficulty with taking her vitamin B12 injections; however, methylmalonic acid from 08/03/2018 was normal, indicating adequate B12 replacement at that time. She has had multifactorial edema of her lower legs, requiring use of torsemide on an as needed basis. She has gastroesophageal reflux disease and known gastroparesis, in part related to high doses of chronic opioid medication. Very distant history of retroperitoneal fibrosis, persistent elevated alkaline phosphatase of uncertain etiology, osteoporosis. History of anxiety, multiple back surgeries, multiple abdominal surgeries, isolated atrial fibrillation on 05/30/2015 and none since and current EKG shows NSR. The long stenotic segment of her distal small bowel has been known and stable since 2015. The hope has been that adequate suppression of the Crohn's would reduce the edema at the ileocolonic anastamosis enough that she would be able to eat enough to stay stable. After multiple surgeries, resection of the stenotic segment is to be avoided unless absolutely necessary. She seems to be able to get along with her activities of daily living in a chronicly undernourished and dehydrated state relatively well. CURRENT MEDICATIONS -- TAKEN FROM HER [facility] DISCHARGE RECORD, AND ITS [facility] [address] [place] [address] HISTORY AND PHYSICAL Name: HERMILO GEORGE Room #: 244-P [facility] IN [facility]#: [id number] Admission: 08/26/18 Attend Phys: Rufus Faye MD Discharge: Date of : 55 Report #: [id number] ACCURACY IS NOT VERIFIABLE AT THIS TIME: Multiple vitamin daily, tizanidine 4 mg every 8 hours as needed, vitamin B12 injection IM once weekly, diazepam 5 mg once a day as needed for muscle spasms, hydromorphone 2 mg tablets taking a dose of 4 mg 3 times daily as needed for pain. She does have her implanted pain pump with a presumed hydromorphone solution, Inflectra infusion every 8 weeks, potassium chloride 20 mEq once daily, lorazepam 0.5 mg 1 or 2 tablets as needed for anxiety once daily, pregabalin 75 mg both capsules at bedtime, methylprednisolone 30 mg IM injection was given on 08/23/2018 at the time of her discharge, promethazine 25 mg tablets 1 or 2 every 4 hours as needed for nausea and vomiting. MEDICATIONS GIVEN IN [facility] IN HER LAST 24 HOURS ARE LISTED: Intravenous famotidine 20 mg every 12 hours, ondansetron 4 mg every 8 hours, prednisone 5 mg once daily, valacyclovir 1 gram twice daily and ceftriaxone 1 gram IV once daily. REVIEW OF SYSTEMS: Unavailable. FAMILY HISTORY: Not applicable. OBJECTIVE: GENERAL: The patient was examined in the Emergency Room. She was sedated via propofol infusion and on a ventilator. HEENT: Her pupils are midpoint and her eyes were fixed looking straight ahead. NECK: Negative. LUNGS: Clear anteriorly and posteriorly. CARDIOVASCULAR: S1 and S2 were normal and regular. ABDOMEN: Soft, without organomegaly or masses. Multiple well-healed abdominal scars were present. SPINE: Thoracic and lumbar had no fresh surgical scars, healed old surgical scars were noted. No gross deformities were identified. EXTREMITIES: There was oxzn-eq-jziewznz diffuse muscle atrophy of the extremities. There was no significant edema in the legs. There was an old bruise on the left forearm, and a more recent bruising of the right buttock area. There were no open skin lesions. NEURO: No response to pain. LABORATORY DATA: CT scan of the head shows diffuse multifocal areas of decreased attenuation in both cerebral hemispheres and the left cerebellum, of uncertain significance, that could be multiple infarcts or multiple areas of edema. Further evaluation by MRI was a consideration. CTA of the chest, abdomen and pelvis was negative for pulmonary emboli. The celiac, superior mesenteric, inferior mesenteric and renal arteries were noted to be patent. Thoracolumbar spondylosis was noted with a vertebroplasty at L1 and postsurgical changes at L4-L5. Not mentioned in the report, but known to be present is a [address] [address] HISTORY AND PHYSICAL Name: HERMILO GEORGE Room #: 244-P [facility] IN .R.#: [id number] Admission: 08/26/18 Attend Phys: Rufus Faye MD Discharge: Date of : 55 Report #: [id number] pain pump with an intrathecal catheter. Diffuse colon thickening is also noted. Potassium is low at 2.7. White count is elevated at 17,000. Drug screen is positive as expected for benzodiazepines and opiates, and negative for other tested drugs of abuse. Lactate is elevated as expected. Lactic acid is elevated as expected from her seizures up to 6.4. ASSESSMENT: 1. Status epilepticus. 2. Abnormal CT scan of the brain. 3. Meningitis/cerebritis is a potential/likely cause of her new onset seizures, especially given her history of having been confused beginning a week ago and her past history of meningitis from an infected pain pump and intrathecal catheter in 2014. 4. Recent ongoing corticosteroid use. 5. Active Crohn's disease. 6. Immunosuppression from her steroid use and biologics for her Crohn's disease. Last know infusion was biosimilar Remicaide in March 2018. 7. Chronic abdominal pain/chronic pain syndrome treated with stable high dose oral hydromorphone and a hydromorphone intrathecal pain pump from [facility]. 8. Hypokalemia and a chronic state being relatively dehydrated and low in potassium. 9. Minimally elevated troponin of 0.08 of unclear significance. 10. Chronic obstructive pulmonary disease. 11. B12 deficiency, adequately replaced. 12. Sepsis. PLAN: The patient is transferred to the Intensive Care Unit, intubated on a ventilator with propofol infusion. Neurology has been consulted for management of her status epilepticus. Infectious Disease has been consulted for management of suspected meningitis/cerebritis. Pulmonary medicine has been consulted for management of the ventilator and critical care. MRI scan of the brain and spine has been ordered. Evaluation of her pain pump, and if it should be removed is in progress. According to her previous discussions with me, she remains a full code blue. Complete records from [facility] as well as the images and interpretation of the MRI scan obtained will be requested. <ELECTRONICALLY SIGNED> By: Rufus Faye MD 08/26/18 1251 0815 1051 Rufus Faye MD /nt
--- NOTE | ~2018-08-25 | EKG ---
[place] [address] [facility] [place] [address] ELECTROCARDIOGRAM REPORT Name: ZANE GEORGENA Jesus Room #: 244-P [facility] IN M.R.#: [id number] Admission: 08/26/18 Attend Phys: Rufus Faye MD Discharge: Date of : 55 Report #: [id number] THIS REPORT FOR: //name// [facility] ED Test Date: 2018-08-26 Test Time: 01:32:02 Pat Name: HERIMLO GEORGE Department: Room: 244 Gender: F Continuous Improvement Coordinator: Jhonatan BUTLER : 1955 Requested By: Monisha Guevara Order Number: [id number] MD: Steven Ron Measurements Intervals [place] Rate: 69 P: 34 UT: 129 QRS: -3 QRSD: 93 T: 23 QT: 424 QTc: 455 Interpretive Statements Sinus rhythm Premature ventricular complexes Probable left atrial enlargement Compared to ECG 08/20/2017 10:06:57 Ventricular complex(es) now present Sinus tachycardia no longer present Electronically Signed On 08-26-2018 8:13:57 CDT by Steven Ron [email or web address] <ELECTRONICALLY SIGNED> By: Steven Ron MD, [facility] 08/26/18 0813 0132 013 Steven Ron MD, [facility] /EPI
--- NOTE | ~2018-08-25 | HC ---
[facility] [place] [address] CONSULTATION Name: HERMILO GEORGE Room #: 244-P [facility] IN ..#: [id number] Admission: 08/26/18 Attend Phys: Rufus Faye MD Discharge: 08/26/18 Date of : 55 Report #: [id number] THIS REPORT FOR: //name// CC: Deon Eduardo DATE OF SERVICE: 08/26/2018 HISTORY OF PRESENT ILLNESS: This is a 63-year-old female patient on whom I got the first call from Emergency Room early this morning that the patient is being admitted with status epilepticus. She has given the patient benzodiazepine and when that was not effective, she gave the patient Dilantin. Her seizure has stopped at that time. She got a history that this patient had a pain pump. She follows up with a physician in a [facility] and it is a pain management physician. At that time, the history was that the pain pump was either filled recently or some adjustment was made. Later on, after talking to multiple people, which will be summarized later, I am not sure that history is correct. My recommendation to the Emergency Room physician was that she should talk to Dr. Faye and not admit the patient here and admit the patient at some other hospital. My reason for that recommendation was that we do not have any supervisor painting here and we do not know whether her pump is compatible with MRI or not. As I understand from talking to Dr. Faye that because of some misunderstanding, the patient got admitted here to ICU. Since she was here, I went ahead and saw her. She was not having any active seizure. I had multiple conversations with Dr. Faye since that time. Subsequently, I was able to reach the patient's son and he knew some history, but he did not know complete history whether the shunt is compatible with MRI and if it is compatible, whether it needs to be restarted or whether it is auto-start. I had multiple conversations with the son since that time. It looks like the patient has Crohn's disease. She had a pump, which got infected in the past and then she has a new pump. She underwent a CT scan of the head, and CT scan of the head showed multiple areas of decreased attenuations, which has appeared since January 2018. That was concerning. REVIEW OF SYSTEMS: As described above, this information is gotten by talking to multiple people. She did have an EKG, which showed ventricular complexes. It showed probable left atrial enlargement. One of the records indicates that she has history of atrial fibrillation. I talked to Dr. Faye and he indicated that the patient has only 1 episode of atrial fibrillation. From all the histories I could get from the son, it looks like this patient has been confused from the early part of this week. I do not know whether she returned back to her baseline or not. [address] [address] CONSULTATION Name: HERMILO GEORGE Room #: 244-P [facility] IN M.R.#: [id number] Admission: 08/26/18 Attend Phys: Rufus Faye MD Discharge: 08/26/18 Date of : 55 Report #: [id number] PAST MEDICAL HISTORY: Positive for Crohn's disease as well as chronic pain. FAMILY HISTORY: Unavailable. SOCIAL HISTORY: This patient has 2 sons, and I was able to talk to both of them and one of them I talked multiple times. PHYSICAL EXAMINATION: Pretty much limited. She was on propofol and she was not actively seizing, but she was not doing anything. She was intubated. She was on a vent. Around 9:00 this morning, we left a message for her pain management doctor to call me back. We got that name from the son. I gave my cell lumbar to them and I heard back from him just a few minutes back when I was starting to dictate this note. In the meantime, I talked to Dr. Faye multiple times. We have a situation where no pain management comes here. Her pump need to be checked just to make sure it is dispensing properly and to make sure it is not getting infected. We needed the information if the pump is MRI compatible or not. Even if it is MRI compatible, we needed the information if need to be restarted after the MRI or whether it will automatically restart. We do not have anybody who can restart or give us any input about the pump. Because of that, the decision was made to try to transfer her to some tertiary care center. Son had some more questions, so I called him and gave him all the options and pros and cons of transferring him to tertiary care center. He had some question, but finally, he understood and he was fine in transferring the patient to [facility]. [facility] called back and indicated that they have accepted the patient and Dr. Faye's nurse practitioner has made arrangement and filled up the required paperwork to transfer this patient to [facility] as I understood from them. Further management will be deferred to [facility], but this patient is a complicated case and probably need to involve the pain management, the need to ask a neuroradiologist to look at the patient's CT and do the workup for the patient's seizures. This patient needs pain management, evaluation of the CT by a neuroradiologist and then the decision has to be made what further workup including LP or MRI need to be done with the complicating situation as described above. As I started to dictate this note, pain management physician just called me. He provided history that the patient's pain medication was not altered, but he does not know whether she took some oral medications along with that or not. He provided another history that this patient had a history suggestive of shingles. That happened last week and they were treating her with antiviral. That may be a significant history in this patient. I do not know which physician she will be seeing and whom to contact as they have multiple residents and attending who will be seeing them. Therefore, I called the patient's son back after [facility] [address] [place] [address] CONSULTATION Name: GEORGEHERMILO Jesus Room #: 244-P [facility] IN [facility].#: [id number] Admission: 08/26/18 Attend Phys: Rufus Faye MD Discharge: 08/26/18 Date of : 55 Report #: [id number] getting that history to make sure that he tells the physician that this patient does have a history of shingles, which erupted last week, which I was not aware of it until a few minutes ago when the pain physician called back. The son understood the importance of it and he said he will let physicians know that there. I spent more than 70 minutes of time taking care of this patient today and majority of that time was spent counseling the patient's family and coordinating her care as described above. <ELECTRONICALLY SIGNED> By: Hiro Choi MD 08/30/18 0947 1401 0256 Hiro Choi MD /nt
[2018-08-25 23:53] VITALS: BP 161/80
[2018-08-26] VITALS (7 sets, daily range): BP systolic 104–131; BP diastolic 53–80
[2018-08-26] MEDS ORDERED: DEPO MEDRO IM (00:06)
[2018-08-26] MEDS ORDERED: [UNRECOGNIZED DRUG - OTHER] (00:07)
[2018-08-26] MEDS ORDERED: LYRICA 75 MG CA75 MG PO (00:08)
[2018-08-26] MEDS ORDERED: VALIUM5 MG PO (00:08)
[2018-08-26] MEDS ORDERED: ATIVAN0.5 MG PO (00:08)
[2018-08-26 00:49] LABS: URINE BILIRUBIN NEGATIVE (Negative); URINE BLOOD TRACE (Negative); URINE CLARITY CLEAR; URINE COLOR YELLOW; URINE GLUCOSE-RANDOM* NEGATIVE (Negative); URINE KETONES NEGATIVE (Negative); URINE LEUKOCYTES-REFLEX NEGATIVE (Negative); URINE NITRITE-REFLEX NEGATIVE (Negative); URINE PROTEIN (DIPSTICK) NEGATIVE (Negative); URINE SPECIFIC GRAVITY 1.015 (1.005-1.035); URINE UROBILINOGEN 0.2 E.U./dl (0.2-1.0)
[2018-08-26 02:08] LABS: ABSOLUTE NEUTROPHILS 15.2 thou/uL (1.4-8.2); BASOPHILS 0.4 % (0.0-2.0); HEMATOCRIT 39.5 % (37.0-47.0); HEMOGLOBIN 12.6 gm/dL (12.0-15.0); LYMPHOCYTES 5.8 % (24.0-44.0); MCV 84.3 fL (80.0-100.0); MONOCYTES 7.6 % (1.0-8.0); PLATELET COUNT 260 thou/uL (150-400); POLYS 86.2 % (36.0-66.0); RBC 4.68 mil/uL (4.20-5.00); RDW 20.6 % (10.5-14.5); WBC 17.7 thou/uL (4.0-11.0)
[2018-08-26 02:17] LABS: ANION GAP 11 mmol/L (7-16); BUN 10 mg/dL (7-18); CALCIUM 9.4 mg/dL (8.5-10.1); CHLORIDE 95 mmol/L (98-107); CO2 31 mmol/L (21-32); CREATININE 0.8 mg/dL (0.6-1.0); GLUCOSE 111 mg/dL (74-106); SODIUM 137 mmol/L (136-145)
[2018-08-26 02:19] LABS: INR 1.1; PROTIME 10.8 Seconds (9.3-11.4)
[2018-08-26 02:22] LABS: POTASSIUM 2.7 mmol/L (3.5-5.1)
[2018-08-26 02:26] LABS: ALBUMIN 3.3 g/dL (3.4-5.0); LIPASE 139 U/L (73-393); SGOT 19 U/L (15-37); SGPT 22 U/L (30-65); TOTAL BILIRUBIN 0.7 mg/dL (<0.1-1.0); TOTAL PROTEIN 7.1 g/dL (6.4-8.2); TROPONIN-I 0.08 ng/mL (<0.06)
[2018-08-26 02:45] LABS: SALICYLATE < 2.8 mg/dL (2.8-20.0)
[2018-08-26 03:48] LABS: ANISOCYTOSIS 2+
[2018-08-26 05:49] LABS: HCO3 27.6 mmol/L (22.0-26.0); PCO2 41.8 mmHg (35.0-45.0); PO2 93.7 mmHg (80.0-100.0); pH 7.437 (7.360-7.450); sO2 97.4 % (92.0-98.0)
[2018-08-26 06:03] LABS: AMP/METHAMP Negative (Negative); BARBITURATES Negative (Negative); BENZODIAZEPINES POSITIVE (Negative); COCAINE Negative (Negative); METHADONE Negative (Negative); OPIATES POSITIVE (Negative); PCP Negative (Negative)
[2018-08-28 17:06] LABS: TRICYCLIC (TCA) CONFIRMATION Negative ng/mL (Cutoff=100)
== END 2018-08-26 14:32 | disposition short-term general hospital (02) | DRG 871 ==
LOC: ER 23:52 → ICU 08-26 05:31 → EROBS 08-26 05:31 → ICU 08-26 06:46
PROVIDERS: Student in an Organized Health Care Education/Training Program
DX: A41.9 Sepsis, unspecified organism (principal); J96.01 Acute respiratory failure with hypoxia; G04.90 Encephalitis and encephalomyelitis, unspecified; G40.801 Other epilepsy, not intractable, with status epilepticus; K50.90 Crohn's disease, unspecified, without complications; F11.20 Opioid dependence, uncomplicated; F32.9 Major depressive disorder, single episode, unspecified; M81.0 Age-related osteoporosis without current pathological fracture; I48.91 Unspecified atrial fibrillation; F17.210 Nicotine dependence, cigarettes, uncomplicated; I73.9 Peripheral vascular disease, unspecified; J44.9 Chronic obstructive pulmonary disease, unspecified; K21.9 Gastro-esophageal reflux disease without esophagitis; G89.4 Chronic pain syndrome; F41.9 Anxiety disorder, unspecified; E53.8 Deficiency of other specified B group vitamins; I25.10 Atherosclerotic heart disease of native coronary artery without angina pectoris; E87.6 Hypokalemia; K31.84 Gastroparesis; R10.9 Unspecified abdominal pain; Z90.710 Acquired absence of both cervix and uterus; Z87.442 Personal history of urinary calculi; Z90.49 Acquired absence of other specified parts of digestive tract; Z88.2 Allergy status to sulfonamides; Z88.8 Allergy status to other drugs, medicaments and biological substances; Z79.899 Other long term (current) drug therapy
CPT/HCPCS: 10078